=== PATIENT | male | born 1960 | race Caucasian/White ===

== ENCOUNTER → 2019-10-27 09:39 | Outpatient (BNVA) | payer MEDICARE, MEDICAID, SELFPAY | PROVIDERS: Family Provider Family Medicine; PCP Family Medicine; Visit Provider Family Medicine | DX: D64.9 Anemia, unspecified (principal); V89.2XXA Person injured in unspecified motor-vehicle accident, traffic, initial encounter; I10 Essential (primary) hypertension; M62.838 Other muscle spasm; D50.8 Other iron deficiency anemias; N52.9 Male erectile dysfunction, unspecified; K21.9 Gastro-esophageal reflux disease without esophagitis; M51.36 Other intervertebral disc degeneration, lumbar region | CPT/HCPCS: 80053; 85025 ==

== ENCOUNTER → 2020-01-25 17:00 | Outpatient (BNVA) | payer MEDICARE, MEDICAID, SELFPAY | PROVIDERS: Family Provider Family Medicine; PCP Family Medicine; Visit Provider Nurse Practitioner | DX: S92.414A Nondisplaced fracture of proximal phalanx of right great toe, initial encounter for closed fracture (principal); X58.XXXA Exposure to other specified factors, initial encounter | CPT/HCPCS: 73610; 73630 ==

== ENCOUNTER 2020-04-10 13:09 | Emergency (ER) | payer MEDICARE, MEDICAID, SELFPAY ==
[2020-04-10 13:40] VITALS: BP 115/73; PULSE 106; RESP 14; TEMP 36.8; O2SAT 96; BMI 26.6
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
== END 2020-04-10 14:41 | disposition home or self-care (01) ==
PROVIDERS: Emergency Provider Nurse Practitioner Family; PCP Family Medicine
DX: S61.213A Laceration without foreign body of left middle finger without damage to nail, initial encounter (principal); W20.8XXA Other cause of strike by thrown, projected or falling object, initial encounter; I10 Essential (primary) hypertension; F17.210 Nicotine dependence, cigarettes, uncomplicated
CPT/HCPCS: 12002; 12345; 99281

== ENCOUNTER → 2020-09-11 11:19 | Outpatient (BNVA) | payer MEDICARE, MEDICAID, SELFPAY | PROVIDERS: PCP Family Medicine; Visit Provider Family Medicine | DX: Z00.00 Encounter for general adult medical examination without abnormal findings (principal); I10 Essential (primary) hypertension; M10.9 Gout, unspecified; F19.982 Other psychoactive substance use, unspecified with psychoactive substance-induced sleep disorder; M51.36 Other intervertebral disc degeneration, lumbar region | CPT/HCPCS: 80053; 84550 ==

== ENCOUNTER → 2020-11-28 10:36 | Outpatient (BNVA) | payer MEDICARE, MEDICAID, SELFPAY | PROVIDERS: PCP Family Medicine; Visit Provider Nurse Practitioner | DX: S99.911A Unspecified injury of right ankle, initial encounter (principal); S99.921A Unspecified injury of right foot, initial encounter; M12.871 Other specific arthropathies, not elsewhere classified, right ankle and foot | CPT/HCPCS: 73090; 73610; 73630 ==

== ENCOUNTER 2020-11-29 14:29 | Emergency (ER) | payer MEDICARE, MEDICAID, SELFPAY ==
[2020-11-29 14:38] VITALS: PULSE 112; RESP 20; TEMP 37.2; O2SAT 96; BMI 27.3
--- NOTE | 2020-11-29 15:06 | XR_ITS ---
WS: [id number] LEFT ELBOW: 3 VIEW(S) TECHNIQUE: AP, oblique and lateral. HISTORY: questionable radial head fx on forearm film from yesterday COMPARISON: None available. No acute fractures or dislocation. No joint effusion. No soft tissue abnormality. XR/XR elbow LT min 3V* [id number] IMPRESSION: Normal LEFT elbow.
--- NOTE | 2020-11-29 15:06 | XR_ITS ---
WS: [id number] RIGHT ANKLE: 3 VIEW(S) TECHNIQUE: AP, oblique(s) and lateral. HISTORY: Possible tibial fracture. COMPARISON: Study on 11/28/2020. Again noted is the lucency through the distal lateral tibia seen only on one projection. Suspicious f or an incomplete fracture. Complete fusion across the tibiotalar and the distal tibiofibular joint spaces. Mild deformity in the mid fibula probably from a prior fracture. XR/XR ankle RT min 3V* [id number] IMPRESSION: 1. Again noted is a lucency seen only on one projection involving the distal t ibia. Highly suspicious for an incomplete fracture. Age indeterminate. 2. 

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
[2020-11-29] MEDS: tetanus-diphtheria tox (adult) 0.5 mL SDV IM (15:47)
--- NOTE | 2020-11-30 11:29 | DCPLANNER ---
international trade manager had message to schedule a follow up appointment for patient with ortho. international trade manager called the ortho clinic, spoke with Suzie, gave clinic patients information. international trade manager was told that patients information would be printed and reviewed. Clinic will call patient with appointment information.
--- NOTE | 2020-12-01 11:18 | DCPLANNER ---
Patient has a follow up appointment scheduled for Friday, December 01, 2020 at 3:[address] Elder at [facility]. Clinic will call patient with appointment information.
--- NOTE | 2020-12-07 08:05 | DCPLANNER ---
Patient had a follow up appointment scheduled for 12.01.[address] Elder at [facility] - patient did attend appointment.
== END 2020-11-29 17:03 | disposition home or self-care (01) ==
PROVIDERS: Emergency Provider Physician Assistant; PCP Family Medicine
DX: S31.821A Laceration without foreign body of left buttock, initial encounter (principal); S82.301A Unspecified fracture of lower end of right tibia, initial encounter for closed fracture; W01.198A Fall on same level from slipping, tripping and stumbling with subsequent striking against other object, initial encounter; Y93.01 Activity, walking, marching and hiking; W26.0XXA Contact with knife, initial encounter; I10 Essential (primary) hypertension; F17.210 Nicotine dependence, cigarettes, uncomplicated; Z23 Encounter for immunization
CPT/HCPCS: 29515; 73080; 73610; 90471; 90714; 99283; E0114

== ENCOUNTER → 2021-01-09 10:08 | Outpatient (BNVA) | payer MEDICARE, MEDICAID, SELFPAY | PROVIDERS: PCP Family Medicine; Visit Provider Nurse Practitioner Family | DX: Z20.822 Contact with and (suspected) exposure to COVID-19 (principal); Z01.812 Encounter for preprocedural laboratory examination | CPT/HCPCS: 87426 ==

== ENCOUNTER → 2022-04-01 10:09 | Outpatient (BNVA) | payer MEDICARE, MEDICAID, SELFPAY | PROVIDERS: PCP Family Medicine; Visit Provider Family Medicine | DX: I10 Essential (primary) hypertension (principal); D64.9 Anemia, unspecified; J44.1 Chronic obstructive pulmonary disease with (acute) exacerbation | CPT/HCPCS: 80053; 85025 ==

== ENCOUNTER → 2022-05-14 11:01 | Outpatient (BNVA) | payer MEDICARE, MEDICAID, SELFPAY | PROVIDERS: PCP Family Medicine; Visit Provider Nurse Practitioner | DX: R39.9 Unspecified symptoms and signs involving the genitourinary system (principal); M54.32 Sciatica, left side | CPT/HCPCS: 81000; 87086 ==

== ENCOUNTER 2022-06-17 11:10 | Outpatient (CLI) | payer MEDICARE, MEDICAID, SELFPAY ==
--- NOTE | 2022-06-17 11:00 | MR_ITS ---
WS: [id number] MRI LUMBAR SPINE NONCONTRAST TECHNIQUE: Sagittal T1, T2 and STIR imaging. Axial T1 and T2 imaging. CLINICAL INFORMATION: progressive accelerating left back/leg pain recent weeks COMPARISON: MRI 2011 FINDINGS: Mild lumbar curve. No acute compression. Mild disc bulging L3-L4 and L4-L5. Mild chronic compression superior endplate L1 is new from previous but has a chronic appearance. L1-L2: Mild facet arthropathy. Spinal canal and foramen are patent. L2-L3: Mild annular bulging. Mild facet arthropathy. Spinal canal and foramen are patent. L3-L4: Mild annular bulging. Moderate central canal stenosis. Impingement traversing L4 nerve roots b ilaterally. Mild LEFT and no significant RIGHT foraminal narrowing. Moderate facet arthropathy. L4-L5: Mild annular bulging. Impingement on the RIGHT subarticular recess and traversing RIGHT L5 ner ve root. Moderate facet arthropathy. Foramen are patent. L5-S1: No significant disc bulging. Moderate facet arthropathy. Spinal canal and foramen are patent. Visualized pelvic bony structures: Normal. Paravertebral soft tissues: Normal. MR/MR lumbar spine wo con* [id number] IMPRESSION: 1. Mild lumbar curve. No acute compression 2. Moderate central canal stenosis L3-L4 due to mild annular bulging with impi ngement traversing L4 nerve roots bilaterally. 3. Annular bulging L4-L5 impinges the RIGHT subarticular recess and traversing RIGHT L5 nerve root. 4. Eccentric disc bulging L3-L4 with small foraminal protrusions results in mi ld LEFT greater than RIGHT foraminal narrowing with contact of the exiting L3 n erve roots bilaterally.
== END 2022-06-17 11:11 | disposition home or self-care (01) ==
LOC: RAD 11:13
PROVIDERS: PCP Family Medicine; Visit Provider Family Medicine
DX: M48.061 Spinal stenosis, lumbar region without neurogenic claudication (principal); M51.16 Intervertebral disc disorders with radiculopathy, lumbar region
CPT/HCPCS: 72148

== ENCOUNTER → 2022-06-27 11:38 | Outpatient (BNVA) | payer MEDICARE, MEDICAID, SELFPAY | PROVIDERS: PCP Family Medicine; Referring Provider Family Medicine; Visit Provider Physician Assistant | DX: M51.16 Intervertebral disc disorders with radiculopathy, lumbar region (principal) | CPT/HCPCS: 72110; 99203 ==

== ENCOUNTER 2022-07-13 19:32 | Emergency (ER) | payer MEDICARE, MEDICAID, SELFPAY ==
[2022-07-13 19:34] VITALS: BP 127/75; PULSE 109; RESP 15; TEMP 37.2; O2SAT 97
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
[2022-07-13 20:06] VITALS: RESP 18
[2022-07-13] MEDS: morphine 4 mg/mL SDV 1 mL IM (20:06)
[2022-07-13] MEDS: dexamethasone 10 mg/mL INJ IM (20:06)
[2022-07-13] MEDS: ketorolac 30 mg/mL INJ IM (20:07)
== END 2022-07-13 20:16 | disposition home or self-care (01) ==
PROVIDERS: Emergency Provider Nurse Practitioner Family; PCP Family Medicine
DX: M54.50 Low back pain, unspecified (principal); M10.9 Gout, unspecified; M54.2 Cervicalgia; J44.1 Chronic obstructive pulmonary disease with (acute) exacerbation; I10 Essential (primary) hypertension; F17.210 Nicotine dependence, cigarettes, uncomplicated
CPT/HCPCS: 96372; 99284; J1100; J1885; J2270

== ENCOUNTER → 2022-07-18 09:18 | Outpatient (BNVA) | payer MEDICARE, MEDICAID, SELFPAY | PROVIDERS: PCP Family Medicine; Referring Provider Physician Assistant; Visit Provider Anesthesiology Pain Medicine | DX: G89.29 Other chronic pain (principal); M51.16 Intervertebral disc disorders with radiculopathy, lumbar region; M48.061 Spinal stenosis, lumbar region without neurogenic claudication; M51.36 Other intervertebral disc degeneration, lumbar region; M47.816 Spondylosis without myelopathy or radiculopathy, lumbar region | CPT/HCPCS: 99205 ==

== ENCOUNTER → 2022-10-08 10:56 | Outpatient (BNVA) | payer MEDICARE, MEDICAID, SELFPAY | PROVIDERS: PCP Family Medicine; Visit Provider Physician Assistant | DX: M54.9 Dorsalgia, unspecified (principal) | CPT/HCPCS: 99213 ==

== ENCOUNTER → 2022-10-29 13:03 | Outpatient (BNVA) | payer MEDICARE, MEDICAID, SELFPAY | PROVIDERS: PCP Family Medicine; Visit Provider Anesthesiology Pain Medicine | DX: M47.816 Spondylosis without myelopathy or radiculopathy, lumbar region (principal); M51.16 Intervertebral disc disorders with radiculopathy, lumbar region; M48.061 Spinal stenosis, lumbar region without neurogenic claudication; M51.36 Other intervertebral disc degeneration, lumbar region; G89.29 Other chronic pain | CPT/HCPCS: 64493; 64494; 64495; J3490 ==

== ENCOUNTER 2022-12-23 06:27 | Emergency (ER) | payer MEDICARE, MEDICAID, SELFPAY ==
[2022-12-23 06:44] VITALS: BP 138/92; PULSE 107; RESP 18; TEMP 36.8; O2SAT 98; BMI 25.7
[2022-12-23] MEDS: dexamethasone 10 mg/mL INJ IM (06:53)
[2022-12-23] MEDS: orphenadrine 30 mg/mL Inj 2 mL 60 MG IVP (06:53)
[2022-12-23] MEDS: ketorolac 30 mg/mL INJ IVP (06:53)
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
[2022-12-23 07:38] VITALS: RESP 17
[2022-12-23] MEDS: morphine 4 mg/mL SDV 1 mL IM (07:38)
== END 2022-12-23 08:18 | disposition home or self-care (01) ==
PROVIDERS: Emergency Provider Family Medicine; PCP Family Medicine
DX: M54.16 Radiculopathy, lumbar region (principal); I10 Essential (primary) hypertension; F17.210 Nicotine dependence, cigarettes, uncomplicated
CPT/HCPCS: 96372; 96374; 96375; 99284; J1100; J1885; J2270; J2360

== ENCOUNTER → 2023-02-13 15:58 | Outpatient (BNVA) | payer MEDICARE, MEDICAID, SELFPAY | PROVIDERS: PCP Family Medicine; Visit Provider Orthopaedic Surgery | DX: M51.16 Intervertebral disc disorders with radiculopathy, lumbar region (principal); M47.816 Spondylosis without myelopathy or radiculopathy, lumbar region | CPT/HCPCS: 72110; 99214 ==

== ENCOUNTER → 2023-03-05 10:46 | Outpatient (BNVA) | payer MEDICARE, MEDICAID, SELFPAY | PROVIDERS: PCP Family Medicine; Visit Provider Family Medicine | DX: Z01.818 Encounter for other preprocedural examination (principal) | CPT/HCPCS: 80053; 81000; 85025 ==

== ENCOUNTER 2023-03-12 05:49 | Day surgery (SDC) | payer MEDICARE, MEDICAID, SELFPAY ==
[2023-03-12] VITALS (13 sets, daily range): BP systolic 109–165; BP diastolic 87–105; PULSE 82–98; RESP 16–21; TEMP 36.3–36.8; O2SAT 93–99; BMI 29.2
--- NOTE | 2023-03-12 | XR_ITS ---
WS: [id number] INTRAOPERATIVE TECHNIQUE: 5 Spot fluoroscopic images for intraoperative purposes. FLUOROSCOPY TIME: 16.9 seconds CLINICAL INFORMATION: L3-4; L4-5 decompression, or pic COMPARISON: None. FINDINGS: Localization marker projected over the dorsal LEFT L4-5 and LEFT L3-4 disc spaces. IMPRESSION: Images obtained for intraoperative purposes.
[2023-03-12] MEDS: sodium chloride 0.9% 1,000 ML 30 ML IV (06:20)
--- NOTE | 2023-03-12 06:24 | W.PM.OPSUD ---
Surgery/Procedure H&P Update DATE OF PROCEDURE: March 12, 2023 DATE H&P PERFORMED: 03/05/23 H&P UPDATE INFORMATION: I have reviewed H&P completed within last 30 days, I have examined patient prior to procedure and No changes to prior documentation PREOP DIAGNOSIS: Lumbar Stenosis PLANNED PROCEDURE: Operation Date: 03/12/23 07:00 Proposed Procedures p Lumbar Spine Decompression Lumbar Decompression/ Bilateral Standing on left side(Bilateral) - Mike Penny DO
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
[2023-03-12] MEDS: ceFAZolin 2,000 MG in sodium chloride 0.9% (plus) 50 ML 100 MG IV (07:04)
[2023-03-12] MEDS: lidocaine-epi 2% 20 mL INJ INJECTION (07:26)
[2023-03-12] MEDS: thrombin 5,000 unit SDV 5000 UNIT XX (07:41)
--- NOTE | 2023-03-12 08:15 | P.OP_ITS ---
Operative Report Date of procedure: March 12, 2023 Pre-op diagnosis: Lumbar stenosis with neurogenic claudication Post-op diagnosis: same Procedure done: 1. L3-4 laminectomy with partial facetectomies 2. L4-5 laminectomy with partial facetectomies Surgeon: Mike Penny DO Immunology Specialist: Jelani Ramos Immunology Specialist: The surgical services coordinator, Jelani Ramos, DILCIA was needed for his expertise under the microscope. He was important and necessary throughout the procedure to complete in a safe and timely manner. He assisted with patient positioning prepping and draping tissue retraction suctioning of the operative field protection of the dural sac and tissue closure Estimated blood loss (mL): 10 Procedure: 1. L3-4 laminectomy with partial facetectomies 2. L4-5 laminectomy with partial facetectomies Patient is brought to the operative suite. After undergoing anesthesia they are placed in the prone position. All areas of impingement are well padded. Patient is then prepped and draped in the normal sterile fashion. A skin incision is made over the L3/4 level. This is confirmed under c-arm guidance. A series of dilators are passed and the tubular retractor is docked on the L3 lamina. A bovie is used to clear the soft tissue off the lamina and the L 3/4 facet joint. A high speed killian is then used to perform the laminectomy and take down the medial aspect of the L 3/4 facet joint. A kerrison rongeure was then used to take down the remaining lamina and smooth the edged of the laminectomy up to the point where the ligamentum flavum attaches. Attention was then brought to the medial aspect of the facet joint. The remaining medial aspect of the superior and inferior aspect of the facet joint were taken down with the kerrison from the pedicle of L3 to L 4. The facet joint had significant hypertrophy. Attention was then brought to the Ligamentum Flavum. The ligament was taken down from the lamina of L3 to L4 and out medially to the remaining facet joint. The ligament was thick. The dura was then exposed. The dura was in good repair. The L3 nerve was then traced with a curette out the L3/4 foramen and found to be adequately decompressed. The L4 nerve was traced with a curette around the L4 pedicle. The lateral recess was opened with a kerrison helping to further decompress the L4 nerve. The tubular retractor was then tilted to the contralateral side. The bovie was used to take down the soft tissue on the spinous process. The high speed killian was used to take down the spinous process and then the contralateral lamina of L3. The kerrison rongeur was used to take down the remaining lamina to the point where the ligamentum flavum attached and the ligamentum flavum was taken down from L3 to L4. The kerrison rongeur was then used to reach across and take down the medial aspect of the contralateral L3/4 facet joint.The currete was used to trace the contralateral L3 nerve out the L3/4 foramen to make sure it was decompressed adequatesly and the L4 was traced around the L4 pedicle. The lateral recess was opened further with the kerrison to ensure the L4 is adequately decompressed. Wound is then irrigated copiously with saline and surgiflo is used to stop any bleeding. The tubular retractor is removed and the A skin incision is made over the L4/5 level. This is confirmed under c-arm guidance. A series of dilators are passed and the tubular retractor is docked on the L4 lamina. A bovie is used to clear the soft tissue off the lamina and the L 4/5 facet joint. A high speed killian is then used to perform the laminectomy and take down the medial aspect of the L 4/5 facet joint. A kerrison rongeure was then used to take down the remaining lamina and smooth the edged of the laminectomy up to the point where the ligamentum flavum attaches. Attention was then brought to the medial aspect of the facet joint. The remaining medial aspect of the superior and inferior aspect of the facet joint were taken down with the kerrison from the pedicle of L4 to L 5. The facet joint had significant hypertrophy. Attention was then brought to the Ligamentum Flavum. The ligament was taken down from the lamina of L4 to L5 and out medially to the remaining facet joint. The ligament was thick. The dura was then exposed. The dura was in good repair. The L4 nerve was then traced with a curette out the L4/5 foramen and found to be adequately decompressed. The L5 nerve was traced with a curette around the L5 pedicle. The lateral recess was opened with a kerrison helping to further decompress the L5 nerve. The tubular retractor was then tilted to the contralateral side. The bovie was used to take down the soft tissue on the spinous process. The high speed killian was used to take down the spinous process and then the contralateral lamina of L4. The kerrison rongeur was used to take down the remaining lamina to the point where the ligamentum flavum attached and the ligamentum flavum was taken down from L4 to L5. The kerrison rongeur was then used to reach across and take down the medial aspect of the contralateral L4/5 facet joint.The currete was used to trace the contralateral L4 nerve out the L4/5 foramen to make sure it was decompressed adequatesly and the L5 was traced around the L5 pedicle. The lateral recess was opened further with the kerrison to ensure the L5 is adequately decompressed. Wound is then irrigated copiously with saline and surgiflo is used to stop any bleeding. The tubular retractor is removed and the wound is closed with vicryl and monocryl suture. Glue is then used to protect the wound. A sterile dressing is then placed. Patient was then placed in the supine position and transferred to the PACU in stable condition.
[2023-03-12] MEDS: HYDROcodone-acetaminophen 10-325 mg Tablet 1 TAB PO (09:17)
--- NOTE | 2023-03-12 09:35 | ANE.PACU2 ---
Inpatient post-anesthesia follow up: Airway intact: Yes Vital signs: Temperature 98.0 F Pulse Rate 82 Respiratory Rate 17 Blood Pressure 109/88 Pulse Oximetry 94 Oxygen Delivery Me thod Room Air Oxygen Flow Rate 6 Fraction of Inspir ed Oxygen Hydration adequate: Yes Nausea and vomiting: No Pain level: 1 Mental status: Baseline
== END 2023-03-12 09:36 | disposition home or self-care (01) ==
PROVIDERS: PCP Family Medicine; Visit Provider Orthopaedic Surgery
PROC: (CPT 63005; principal; 2023-03-12 07:00)
DX: M48.062 Spinal stenosis, lumbar region with neurogenic claudication (principal); J44.9 Chronic obstructive pulmonary disease, unspecified; I10 Essential (primary) hypertension; K21.9 Gastro-esophageal reflux disease without esophagitis; F17.210 Nicotine dependence, cigarettes, uncomplicated
CPT/HCPCS: 63047; 63048; 72020; 76000; J0690; J1100; J2405; J2704; J3010; J3490; J7030

== ENCOUNTER → 2023-04-10 09:59 | Outpatient (BNVA) | payer MEDICARE, SELFPAY | PROVIDERS: PCP Family Medicine; Visit Provider Orthopaedic Surgery | DX: Z47.89 Encounter for other orthopedic aftercare (principal) | CPT/HCPCS: 99024 ==

== ENCOUNTER → 2023-05-22 10:17 | Outpatient (BNVA) | payer MEDICARE, SELFPAY | PROVIDERS: PCP Family Medicine; Visit Provider Orthopaedic Surgery | DX: Z98.890 Other specified postprocedural states (principal) | CPT/HCPCS: 99024 ==

== ENCOUNTER → 2023-07-01 10:30 | Outpatient (BNVA) | payer MEDICARE, SELFPAY | PROVIDERS: PCP Family Medicine; Visit Provider Orthopaedic Surgery | DX: M54.2 Cervicalgia (principal); Z98.890 Other specified postprocedural states | CPT/HCPCS: 72050; 99024 ==

== ENCOUNTER 2023-08-01 15:38 | Emergency (ER) | payer MEDICARE, SELFPAY ==
[2023-08-01 15:41] VITALS: BP 161/73; PULSE 102; RESP 16; TEMP 36.8; O2SAT 99; BMI 28.3
--- NOTE | 2023-08-01 16:48 | XRR_ITS ---
PROCEDURE INFORMATION: Exam: XR Chest Exam date and time: 08/01/2023 4:51 PM Age: 63 years old Clinical indication: Cough TECHNIQUE: Imaging protocol: Radiologic exam of the chest. Views: 1 view. COMPARISON: CR XR chest 1V [id number] 09/09/2018 11:51 AM FINDINGS: Lungs: Unremarkable. No consolidation. Pleural spaces: Unremarkable. No pleural effusion. No pneumothorax. Heart/Mediastinum: Unremarkable. No cardiomegaly. Bones/joints: Mild degenerative disease of bilateral acromioclavicular and glenohumeral joints. Mild curvature of the thoracolumbar spine convex to the right. XR/XR chest 1V portable [id number] IMPRESSION: No acute cardiopulmonary process.
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
--- NOTE | 2023-08-01 16:59 | ECG_ITS ---
[facility] Test Date: 2023-08-01 Pat Name: Tam Ospina Department: Room: Gender: Male Clerical Aide: : 1960 Requested By: Dariusz Camara Order Number: [id number] Alvarenga MD: Sunday Storm M.D. Measurements Intervals [place] Rate: 99 P: 66 [place]: 142 QRS: 41 QRSD: 130 T: 35 QT: 382 QTc: 491 Interpretive Statements SINUS RHYTHM WITH SINUS ARRHYTHMIA INDETERMINATE AXIS RIGHT BUNDLE BRANCH BLOCK [120+ ms QRS DURATION, UPRIGHT V1, 40+ ms S IN I/aVL/V4/V5/V6] Compared to ECG 09/10/2018 00:46:56 Indeterminate axis now present Electronically Signed On 08-04-2023 12:58:07 CDT by Sunday Storm M.D. [email or web address]
[2023-08-01] MEDS: sodium chloride 0.9% 1,000 ML 999 ML IV (17:41)
[2023-08-01] MEDS: ondansetron 2 mg/ML SDV 2 mL 4 MG IVP ×2 (17:43→19:50)
[2023-08-01 17:48] VITALS: BP 143/117; PULSE 98; O2SAT 98
[2023-08-01 17:55] LABS: Basophils % 0.2 %; Hematocrit 45.5 % (37-53); Lymphocytes # 1.4 10^3/uL (0.8-4.8); Lymphocytes % 11.3 %; Mean Corpuscular HGB Conc 34.1 g/dL (30-55); Mean Corpuscular Hemoglobin 30.4 pg (27-33); Mean Corpuscular Volume 89.2 fl (82-101); Mean Platelet Volume 10.6 fL (7.4-10.4); Monocytes # 0.2 10^3/uL (0.2-0.9); Monocytes % 1.8 %; Neutrophils # 10.42 10^3/uL (1.8-7.7); Neutrophils % 86.1 %; Nucleated Red Blood Cells % 0 %; Platelet Count 334 10^3/cmm (157-399); Red Cell Distribution Width 13.8 % (12.1-15.1)
[2023-08-01 18:00] VITALS: BP 176/103; PULSE 98; O2SAT 100
[2023-08-01 18:16] LABS: Alanine Aminotransferase 16 U/L (0-41); Albumin Level 4.9 g/dL (3.5-5.2); Alkaline Phosphatase 97 U/L (40-130); Anion Gap 20.1 (5-19); Aspartate Amino Transferase 15 U/L (0-40); Blood Urea Nitrogen 21 mg/dL (8-23); Calcium 9.3 mg/dL (8.5-10.5); Carbon Dioxide 21 mmol/L (22-29); Chloride 105 mmol/L (98-107); Globulin 2.8 g/dL (1.3-4.6); Glomerular Filtration Rate 136.5 mL/min (90-130); Glucose 138 mg/dL (65-115); Lipase 16 U/L (13-60); Osmolality Calculated 299 mOsm/kg (285-295); Potassium 4.1 mmol/L (3.5-5.1); Sodium 142 mmol/L (136-145); Total Bilirubin 0.5 mg/dL (0.15-1.2); Total Protein 7.7 g/dL (6.6-8.7)
[2023-08-01] MEDS: ketorolac 60 mg/2 mL INJ 30 MG IVP (18:29)
[2023-08-01 18:31] VITALS: BP 160/87; PULSE 97; O2SAT 98
--- NOTE | 2023-08-01 18:36 | CTR_ITS ---
PROCEDURE INFORMATION: Exam: CT Abdomen And Pelvis With Contrast Exam date and time: 08/01/2023 6:46 PM Age: 63 years old Clinical indication: Nausea and vomiting; Abdominal pain; Patient HX: Periumbilical pain with n/v/d x 2 days; Additional info: Abd pain TECHNIQUE: Imaging protocol: Computed tomography of the abdomen and pelvis with contrast. Radiation optimization: All CT scans at this facility use at least one of these dose optimization techniques: automated exposure control; mA and/or kV adjustment per patient size (includes targeted exams where dose is matched to clinical indication); or iterative reconstruction. Contrast material: OMNI 350; Contrast volume: 100 ml; Contrast route: INTRAVENOUS (IV); COMPARISON: CT abdomen pelvis wo con [id number] 09/09/2018 7:25 PM RADIATION DOSE METRICS: Total DLP (mGy-cm): 532.76 FINDINGS: Liver: Normal. No mass. Gallbladder and bile ducts: Normal. No calcified stones. No ductal dilation. Pancreas: Normal. No ductal dilation. Spleen: Multiple punctate calcifications in the spleen consistent with prior granulomatous infection. Adrenal glands: Normal. No mass. Kidneys and ureters: Normal. No hydronephrosis. Stomach and bowel: Unremarkable. No obstruction. No mucosal thickening. Appendix: No evidence of appendicitis. Intraperitoneal space: Unremarkable. No free air. No significant fluid collection. Vasculature: Unremarkable. No abdominal aortic aneurysm. Lymph nodes: Unremarkable. No enlarged lymph nodes. Urinary bladder: Unremarkable as visualized. Reproductive: Unremarkable as visualized. Bones/joints: Unremarkable. No acute fracture. Soft tissues: Unremarkable. CT/CT abdomen pelvis w con* [id number] IMPRESSION: 1. No bowel obstruction or inflammatory process associated with the bowel. 2. No free air or significant free fluid in the abdomen or pelvis. 3. No evidence of appendicitis.
[2023-08-01 18:38] LABS: Add Urine Microscopic? YES; Bacteria Urine TRACE /hpf; Bilirubin Urine Neg (Negative); Blood Urine 2+ (Negative); Glucose Urine UA Norm (Normal); Ketones Urine 2+ (Negative); Leukocyte Esterase Urine Negative (Negative); Nitrate Urine Negative (Negative); Protein Urine Trace (Negative); RBC Urine 0-4 /hpf (0-2); Specific Gravity, Urine 1.015 (1.005-1.030); Squamous Epithelial Cell Urine 0-4 /hpf (0-5); Urine Appearance Clear (CLEAR); Urine Color Yellow (Yellow); Urobilinogen Urine Neg (Negative); WBC Urine 0-4 /hpf (0-5); pH Urine 6 (5-7)
[2023-08-01] MEDS: iohexol 350 mg/mL 500 mL Btl (per mL) IV (18:46)
[2023-08-01] MEDS: metoclopramide 5 mg/mL SDV 2 mL 10 MG IVP (18:57)
[2023-08-01] MEDS: azithromycin 250 mg Tablet 500 MG PO (19:50)
[2023-08-01] MEDS: predniSONE 20 mg Tablet 60 MG PO (19:50)
[2023-08-01 19:52] VITALS: BP 171/95; PULSE 110; RESP 15; O2SAT 97
[2023-08-01 20:02] LABS: Adenovirus Not Detected (NOT DETECT); Chlamydia Pneumoniae Not Detected (NOT DETECT); Coronavirus 229E,HKU1,NL63,OC4 Not Detected (NOT DETECT); Human Metapneumovirus Not Detected (NOT DETECT); Human Rhinovirus/Enterovirus Not Detected (NOT DETECT); Influenza A Not Detected (NOT DETECT); Influenza A H1 Not Detected (NOT DETECT); Influenza A H1-2009 Not Detected (NOT DETECT); Influenza A H3 Not Detected (NOT DETECT); Influenza B Not Detected (NOT DETECT); Mycoplasma Pneumoniae Not Detected (NOT DETECT); Parainfluenza Virus Type 1 Not Detected (NOT DETECT); Parainfluenza Virus Type 2 Not Detected (NOT DETECT); Parainfluenza Virus Type 3 Not Detected (NOT DETECT); Parainfluenza Virus Type 4 Not Detected (NOT DETECT); Respiratory Syncytial Virus A Not Detected (NOT DETECT); Respiratory Syncytial Virus B Not Detected (NOT DETECT); SARS-COV-2 Not Detected (NOT DETECT)
== END 2023-08-01 20:03 | disposition home or self-care (01) ==
PROVIDERS: Emergency Provider Physician Assistant; PCP Family Medicine
DX: K52.9 Noninfective gastroenteritis and colitis, unspecified (principal); J40 Bronchitis, not specified as acute or chronic; F17.200 Nicotine dependence, unspecified, uncomplicated
CPT/HCPCS: 71045; 74177; 80053; 81001; 83690; 85025; 87486; 87581; 87633; 93005; 96374; 96375; 96376; 99285; J1885; J2405; J2765; J7030; J7512; Q0144; Q9967

== ENCOUNTER 2023-08-14 10:48 | Outpatient (CLI) | payer MEDICARE, SELFPAY ==
--- NOTE | 2023-08-14 11:00 | MR_ITS ---
WS: [id number] MRI CERVICAL SPINE NONCONTRAST HISTORY: neck pain COMPARISON: None available. Technique: Multiplanar, multisequence noncontrast imaging of the cervical spine. Slight increase in the cervical lordosis. 2 mm retrolisthesis of C4. Disc spaces are mildly narrowed and desiccated throughout the cervical spine. There is a small amount of increased T2 signal in the v isualized T3 vertebral body with moderate disc space narrowing at T3-4. There is a small central disc protrusion at T3-4 encroaching upon the ventral thecal sac. Signal within the cervical cord is normal. Visualized posterior fossa is unremarkable. Craniocervical junction, C1 and C2 relationship, odontoid process and soft tissues are normal. C2-C3: Normal. C3-C4: Small central disc protrusion. Mild facet arthritis. Small amount of marrow edema LEFT C3 can cular facet. There is also a small amount of adjacent fluid in the LEFT C2-3 facet joint. Moderate bi lateral foraminal stenosis. C4-C5: Mild annular disc bulging with bilateral facet arthritis, LEFT greater than RIGHT. Moderate-si zed foraminal osteophytes. Severe RIGHT and moderate LEFT foraminal stenosis. C5-C6: Osteophytic ridging and facet disease. Effacement of CSF. Severe central and bilateral foraminal stenosis. C6-C7: Small central disc protrusion and facet arthritis. Mild central and foraminal stenosis. C7-T1: Normal. Paraspinal soft tissue are normal. MR/MR cervical spin wo con* [id number] IMPRESSION: 1. Moderate cervical spondylosis. 2. C5-6: Severe central and bilateral foraminal stenosis. Stenosis due to comb ination of disc and osteophyte and facet disease. 3. C3-4: Small central disc protrusion with facet arthritis. Marrow edema in t he LEFT C3 articular facet and in the LEFT C2-3 facet joint from synovitis. Mod erate bilateral foraminal stenosis predominantly due to osteophyte and facet di sease. 4. C4-5: Severe RIGHT and moderate LEFT foraminal stenosis. 5. C6-7: Mild central and foraminal stenosis with a small central disc protrus ion. 6. Degenerative disc disease is moderate at T3-4 with a central disc protrusio n encroaching upon the ventral thoracic cord.
== END 2023-08-14 10:49 | disposition home or self-care (01) ==
LOC: RAD 10:48
PROVIDERS: PCP Family Medicine; Visit Provider Orthopaedic Surgery
DX: M54.2 Cervicalgia (principal); M48.02 Spinal stenosis, cervical region
CPT/HCPCS: 72141

== ENCOUNTER 2023-08-19 11:57 | Emergency (ER) | payer MEDICARE, SELFPAY ==
[2023-08-19 12:00] VITALS: BP 128/67; PULSE 110; RESP 18; TEMP 36.4; O2SAT 95; BMI 28.3
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
[2023-08-19 13:23] VITALS: BP 127/76; PULSE 110; RESP 22; O2SAT 94
[2023-08-19 14:02] VITALS: RESP 24
[2023-08-19] MEDS: ondansetron 2 mg/ML SDV 2 mL 4 MG IVP (14:02)
[2023-08-19] MEDS: morphine 4 mg/mL SDV 1 mL IVP (14:02)
[2023-08-19 14:07] LABS: Basophils # 0.1 10^3/uL (0.0-0.1); Basophils % 0.8 %; Eosinophils # 0.2 10^3/uL (0.0-0.8); Eosinophils % 1.3 %; Hematocrit 42.5 % (37-53); Lymphocytes # 2.9 10^3/uL (0.8-4.8); Lymphocytes % 25.1 %; Mean Corpuscular HGB Conc 31.8 g/dL (30-55); Mean Corpuscular Hemoglobin 30.2 pg (27-33); Mean Corpuscular Volume 95.1 fl (82-101); Mean Platelet Volume 11.3 fL (7.4-10.4); Monocytes # 1.1 10^3/uL (0.2-0.9); Monocytes % 9.5 %; Neutrophils # 7.28 10^3/uL (1.8-7.7); Nucleated Red Blood Cells % 0 %; Platelet Count 236 10^3/cmm (157-399); Red Blood Count 4.47 10^6/uL (3.85-5.65); Red Cell Distribution Width 13.8 % (12.1-15.1); White Blood Count 11.55 10^3/uL (3.29-11.43)
[2023-08-19 14:26] LABS: Alanine Aminotransferase 9 U/L (0-41); Albumin Level 4.1 g/dL (3.5-5.2); Alkaline Phosphatase 94 U/L (40-130); Anion Gap 15.1 (5-19); Aspartate Amino Transferase 12 U/L (0-40); Blood Urea Nitrogen 16 mg/dL (8-23); Calcium 8.6 mg/dL (8.5-10.5); Carbon Dioxide 26 mmol/L (22-29); Chloride 105 mmol/L (98-107); Creatinine Clr Calc Pharmacy 104.8425; Glomerular Filtration Rate 114.3 mL/min (90-130); Glucose 112 mg/dL (65-115); Osmolality Calculated 296 mOsm/kg (285-295); Potassium 4.1 mmol/L (3.5-5.1); Sodium 142 mmol/L (136-145); Total Bilirubin 0.3 mg/dL (0.15-1.2); Total Protein 7.1 g/dL (6.6-8.7)
== END 2023-08-19 15:04 | disposition home or self-care (01) ==
PROVIDERS: Emergency Provider Physician Assistant; PCP Family Medicine
DX: S22.42XA Multiple fractures of ribs, left side, initial encounter for closed fracture (principal); S20.312A Abrasion of left front wall of thorax, initial encounter; I10 Essential (primary) hypertension; Z72.0 Tobacco use; W18.39XA Other fall on same level, initial encounter
CPT/HCPCS: 36415; 71250; 74150; 80053; 85025; 96374; 96375; 99285; J2270; J2405

== ENCOUNTER 2023-09-03 12:08 | Outpatient (CLI) | payer MEDICARE, SELFPAY ==
--- NOTE | 2023-09-03 12:12 | XR_ITS ---
WS: [id number] Exam: XR chest 2V* [id number] Date/Time of Exam: 09/03/2023 12:21 PM Reason For Exam: follow up from hospitalization [facility] Comparison 08/01/2023. The lungs are hyperinflated and clear. Normal cardiomediastinal silhouette. No pleural effusions. Tho racolumbar scoliosis. Mild degenerative changes of the T-spine. Remaining bony structures are unremar kable. XR/XR chest 2V* [id number] IMPRESSION: 1. Pulmonary hyperinflation which may indicate COPD. No acute process.
[2023-09-03 12:40] LABS: Basophils # 0.1 10^3/uL (0.0-0.1); Basophils % 0.6 %; Eosinophils # 0.2 10^3/uL (0.0-0.8); Hematocrit 43.3 % (37-53); Lymphocytes # 2.7 10^3/uL (0.8-4.8); Lymphocytes % 24.2 %; Mean Corpuscular HGB Conc 32.6 g/dL (30-55); Mean Corpuscular Hemoglobin 30.8 pg (27-33); Mean Corpuscular Volume 94.5 fl (82-101); Mean Platelet Volume 9.9 fL (7.4-10.4); Monocytes # 0.7 10^3/uL (0.2-0.9); Monocytes % 6.1 %; Neutrophils % 66.7 %; Nucleated Red Blood Cells % 0 %; Platelet Count 480 10^3/cmm (157-399); Red Blood Count 4.58 10^6/uL (3.85-5.65); Red Cell Distribution Width 14.9 % (12.1-15.1)
[2023-09-03 12:58] LABS: Alanine Aminotransferase 28 U/L (0-41); Alkaline Phosphatase 96 U/L (40-130); Aspartate Amino Transferase 14 U/L (0-40); Blood Urea Nitrogen 24 mg/dL (8-23); Calcium 8.6 mg/dL (8.5-10.5); Carbon Dioxide 23 mmol/L (22-29); Chloride 109 mmol/L (98-107); Creatine Phosphokinase 63 U/L (39-308); Globulin 2.6 g/dL (1.3-4.6); Glucose 96 mg/dL (65-115); Osmolality Calculated 302 mOsm/kg (285-295); Sodium 144 mmol/L (136-145); Total Bilirubin 0.3 mg/dL (0.15-1.2); Total Protein 6.6 g/dL (6.6-8.7)
[2023-09-03 13:00] LABS: Anion Gap 16.1 (5-19); Potassium 4.1 mmol/L (3.5-5.1)
== END 2023-09-03 12:09 | disposition home or self-care (01) ==
LOC: RAD 12:10
PROVIDERS: PCP Family Medicine; Visit Provider Family Medicine
DX: J69.0 Pneumonitis due to inhalation of food and vomit (principal); M62.82 Rhabdomyolysis; M41.9 Scoliosis, unspecified; M47.814 Spondylosis without myelopathy or radiculopathy, thoracic region
CPT/HCPCS: 36415; 71046; 80053; 82550; 85025

== ENCOUNTER → 2023-09-11 15:11 | Outpatient (BNVA) | payer MEDICARE, SELFPAY | PROVIDERS: PCP Family Medicine; Visit Provider Orthopaedic Surgery | DX: M50.90 Cervical disc disorder, unspecified, unspecified cervical region | CPT/HCPCS: 99214 ==

== ENCOUNTER → 2024-01-05 08:02 | Outpatient (BNVA) | payer MEDICARE, MEDICAID, SELFPAY | PROVIDERS: PCP Family Medicine; Referring Provider Family Medicine; Visit Provider Psychiatry & Neurology Neurology | DX: R51.9 Headache, unspecified (principal); R20.0 Anesthesia of skin; R55 Syncope and collapse | CPT/HCPCS: 99203 ==

== ENCOUNTER → 2024-04-27 13:09 | Outpatient (BNVA) | payer MEDICARE, MEDICAID, SELFPAY | PROVIDERS: PCP Family Medicine; Referring Provider Psychiatry & Neurology Neurology; Visit Provider Psychiatry & Neurology Neurology | DX: R55 Syncope and collapse (principal) | CPT/HCPCS: 95816 ==

== ENCOUNTER → 2024-06-02 11:39 | Outpatient (BNVA) | payer MEDICARE, MEDICAID, SELFPAY | PROVIDERS: PCP Family Medicine; Visit Provider Internal Medicine Cardiovascular Disease | DX: R07.9 Chest pain, unspecified (principal) | CPT/HCPCS: 93005; 99214 ==

== ENCOUNTER 2024-06-08 12:12 | Outpatient (CLI) | payer MEDICARE, MEDICAID, SELFPAY ==
--- NOTE | 2024-06-08 12:45 | USCV_ITS ---
Tam Ospina Age: 64 Gender: M : 1960 Exam Date: 06/08/2024 13:06 Ordering Phys: Jennifer Jaimes MD ([email or web address]) Technologist: Exam Location: [facility] Indication: chest pain BP: 123 / 79 HR: 81 Rhythm: Sinus Technical Quality: Adequate MEASUREMENTS (Male / Female) Normal Values 2D ECHO LV Diastolic Diameter PLAX 3.5 cm 4.2 - 5.9 / 3.9 - 5.3 cm IVS Diastolic Thickness 1.1 cm 0.6 - 1.0 / 0.6 - 0.9 cm IVS Systolic Thickness 1.5 cm LVPW Diastolic Thickness 1.3 cm 0.6 - 1.0 / 0.6 - 0.9 cm LVPW Systolic Thickness 1.8 cm LVOT Diameter 2.1 cm LV Ejection Fraction 2D Teich 59.3 % LV Ejection Fraction MOD 4C 66.5 % LV Ejection Fraction MOD 2C 61.7 % LV Ejection Fraction 2C AL 62.2 % LA Diameter 3.0 cm RA Systolic Volume 4C AL 27.6 ml RA Systolic Volume 4C MOD 28.1 ml LA Sys Volume AL 25.9 cm cubed LA Sys Volume Index AL 16.2 cm cubed/m squared Aorta at Sinotubular Diameter 3.1 cm IVC Diameter 1.4 cm M-MODE LA Ao Ratio MM 1.1 AV Cusp Separation MM 2.0 cm DOPPLER AV Peak Velocity 125.0 cm/s LVOT Peak Velocity 101.0 cm/s AV Area Cont Eq vti 3.3 cm squared AV Area Cont Eq pk 2.7 cm squared MV Peak Velocity 79.0 cm/s MV Area PHT 3.4 cm squared Mitral E to A Ratio 0.9 TV Peak Velocity 137.0 cm/s TR Peak Velocity 163.0 cm/s TR Peak Gradient 10.6 mmHg TV Peak E Velocity 68.0 cm/s PV Peak Velocity 98.0 cm/s FINDINGS Left Ventricle Normal left ventricular size and systolic function, EF 61%. Mild left ventricular hypertrophy. Grade I/IV diastolic dysfunction (abnormal relaxation filling pattern), normal to mildly elevated filling pressures. Right Ventricle The right ventricle is normal in size and function. Right Atrium The right atrium is normal in size. Left Atrium The left atrium is normal in size. Mitral Valve No gross abnormalities noted Aortic Valve Thickened aortic valve. Tricuspid Valve No gross abnormalities noted Pulmonic Valve No gross abnormalities noted Pericardium Normal pericardium without effusion. Aorta Normal ascending aorta dimension. IVC Normal inferior vena cava. CONCLUSIONS Normal left ventricular size and systolic function, EF 61%. Mild left ventricular hypertrophy. Grade I/IV diastolic dysfunction (abnormal relaxation filling pattern), normal to mildly elevated filling pressures. Thickened aortic valve. There are no intracardiac masses. There is no pericardial effusion. No similar previous studies are available for comparison Dr Jennifer Jaimes MD [facility] (Electronically Signed) Final Date: 15 June 2024 17:02 S
== END 2024-06-08 12:13 | disposition home or self-care (01) ==
LOC: RAD 12:17
PROVIDERS: PCP Family Medicine; Visit Provider Internal Medicine Cardiovascular Disease
DX: R06.09 Other forms of dyspnea (principal); R93.1 Abnormal findings on diagnostic imaging of heart and coronary circulation; I51.7 Cardiomegaly; I35.8 Other nonrheumatic aortic valve disorders
CPT/HCPCS: 93306

== ENCOUNTER 2024-06-15 15:49 | Emergency (ER) | payer MEDICARE, MEDICAID, SELFPAY ==
--- NOTE | 2024-06-15 15:54 | ECG_ITS ---
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
--- NOTE | 2024-06-15 15:54 | XRR_ITS ---
PROCEDURE INFORMATION: Exam: XR Chest Exam date and time: 06/15/2024 3:57 PM Age: 64 years old Clinical indication: Pain; Angina pectoris; Additional info: Cp TECHNIQUE: Imaging protocol: Radiologic exam of the chest. Views: 1 view. COMPARISON: CR XR chest 2V* [id number] 09/03/2023 12:20 PM FINDINGS: Lungs: Faint opacities of the left lung base. Pleural spaces: Unremarkable. No pleural effusion. No pneumothorax. Heart/Mediastinum: Unremarkable. No cardiomegaly. Bones/joints: Unremarkable. XR/XR chest 1V portable [id number] IMPRESSION: Faint left basilar opacities could represent infiltrate in the correct clinical setting.
[2024-06-15 15:59] VITALS: BP 124/71; PULSE 105; RESP 17; TEMP 36.7; O2SAT 98; BMI 27.4
[2024-06-15 17:12] LABS: Basophils # 0.1 10^3/uL (0.0-0.1); Basophils % 0.8 %; Eosinophils # 0.1 10^3/uL (0.0-0.8); Hematocrit 48.5 % (37-53); Lymphocytes % 22.9 %; Mean Corpuscular HGB Conc 32.4 g/dL (30-55); Mean Corpuscular Hemoglobin 30.3 pg (27-33); Mean Corpuscular Volume 93.6 fl (82-101); Monocytes # 0.7 10^3/uL (0.2-0.9); Neutrophils # 5.84 10^3/uL (1.8-7.7); Neutrophils % 67.2 %; Nucleated Red Blood Cells % 0 %; Platelet Count 256 10^3/cmm (157-399); Red Blood Count 5.18 10^6/uL (3.85-5.65); Red Cell Distribution Width 13.2 % (12.1-15.1)
[2024-06-15 17:22] LABS: INR 0.88 (0.8-1.2)
[2024-06-15 17:42] LABS: Troponin(5th) Baseline 7 ng/L (0-15)
[2024-06-15 17:45] LABS: Alanine Aminotransferase 15 U/L (0-41); Albumin Level 4.6 g/dL (3.5-5.2); Alkaline Phosphatase 97 U/L (40-130); Aspartate Amino Transferase 16 U/L (0-40); Blood Urea Nitrogen 17 mg/dL (8-23); Calcium 9.3 mg/dL (8.5-10.5); Carbon Dioxide 22 mmol/L (22-29); Chloride 104 mmol/L (98-107); Creatinine Clr Calc Pharmacy 64.9806; Globulin 2.3 g/dL (1.3-4.6); Glomerular Filtration Rate 67.6 mL/min (90-130); Glucose 84 mg/dL (65-115); Lipase 17 U/L (13-60); Osmolality Calculated 293 mOsm/kg (285-295); Sodium 141 mmol/L (136-145); Total Bilirubin 0.4 mg/dL (0.15-1.2); Total Protein 6.9 g/dL (6.6-8.7)
--- NOTE | 2024-06-15 17:57 | CTR_ITS ---
PROCEDURE INFORMATION: Exam: CTA Chest With Contrast Exam date and time: 06/15/2024 6:50 PM Age: 64 years old Clinical indication: Chest wall pain; Additional info: Cp TECHNIQUE: Imaging protocol: Computed tomographic angiography of the chest with contrast. Exam focused on the arteries. 3D rendering (Not supervised by radiologist): MIP and/or 3D reconstructed images were created by the technologist. Radiation optimization: All CT scans at this facility use at least one of these dose optimization techniques: automated exposure control; mA and/or kV adjustment per patient size (includes targeted exams where dose is matched to clinical indication); or iterative reconstruction. Contrast material: OMNIPAQUE 350; Contrast volume: 100 ml; Contrast route: INTRAVENOUS (IV); COMPARISON: CT chest abd wo [id number] 08/19/2023 1:54 PM RADIATION DOSE METRICS: Total DLP (mGy-cm): 406.4 FINDINGS: Pulmonary arteries: No definitive filling defects involving the pulmonary arteries. Aorta: Calcific plaque involves the thoracic aorta and coronary arteries. The thoracic aorta is free of aneurysm and dissection. Lungs: There is mild diffuse bronchial wall thickening. The lungs are free of consolidation. Pleural spaces: Unremarkable. No pneumothorax. No pleural effusion. Heart: Unremarkable. No cardiomegaly. No pericardial effusion. Lymph nodes: Unremarkable. No enlarged lymph nodes. Diaphragm: Small hiatal hernia. Bones/joints: Mild degenerative changes involve the spine. No acute bony abnormality. Old left-sided rib fractures Soft tissues: Unremarkable. Other findings: Evaluation is compromised by respiratory motion. CT/CT angio chest PE protcl [id number] IMPRESSION: 1. Negative exam for pulmonary embolus and aortic dissection. 2. Findings suggestive of mild bronchitis. 3. Atherosclerosis including coronary artery calcification
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
[2024-06-15] MEDS: aspirin 81 mg Chew Tablet 324 MG PO (18:16)
[2024-06-15 18:18] VITALS: BP 127/85; PULSE 86; O2SAT 96
--- NOTE | 2024-06-15 18:34 | CTR_ITS ---
PROCEDURE INFORMATION: Exam: CT Head Without Contrast Exam date and time: 06/15/2024 6:50 PM Age: 64 years old Clinical indication: Other: Weakness; Prior surgery; Surgery date: 6+ months; Surgery type: Facial recon TECHNIQUE: Imaging protocol: Computed tomography of the head without contrast. Radiation optimization: All CT scans at this facility use at least one of these dose optimization techniques: automated exposure control; mA and/or kV adjustment per patient size (includes targeted exams where dose is matched to clinical indication); or iterative reconstruction. COMPARISON: CT head wo con* [id number] 09/09/2018 1:48 PM RADIATION DOSE METRICS: Total DLP (mGy-cm): 1170.7 FINDINGS: Brain: Similar mild generalized cortical volume loss. No hemorrhage. Periventricular and subcortical white matter hypodensities likely represent chronic small vessel ischemic changes. No mass effect. Intracranial vascular calcifications. Cerebral ventricles: No ventriculomegaly. Paranasal sinuses: Visualized sinuses are unremarkable. No fluid levels. Mastoid air cells: Visualized mastoid air cells are well aerated. Bones: Unremarkable. No acute fracture. Soft tissues: Unremarkable. CT/CT head wo con* [id number] IMPRESSION: No acute intracranial abnormality.
[2024-06-15] MEDS: iohexol 350 mg/mL 500 mL Btl (per mL) IV (18:57)
[2024-06-15 20:16] LABS: Troponin 5 2HR 6.19 ng/L (0-15)
[2024-06-15 20:20] LABS: Troponin 5 2HR Delta -0.81 ABS# (0-10)
[2024-06-15 20:33] VITALS: BP 113/83; PULSE 74; O2SAT 93
[2024-06-15 21:13] VITALS: BP 126/104; PULSE 77; O2SAT 95
== END 2024-06-15 21:15 | disposition home or self-care (01) ==
PROVIDERS: Emergency Provider Emergency Medicine; PCP Family Medicine
DX: R07.9 Chest pain, unspecified (principal); F17.210 Nicotine dependence, cigarettes, uncomplicated; I10 Essential (primary) hypertension
CPT/HCPCS: 36415; 70450; 71045; 71275; 80053; 83690; 84484; 85025; 85610; 93005; 99285; J9999

== ENCOUNTER → 2024-09-02 12:52 | Outpatient (BNVA) | payer MEDICARE, MEDICAID, SELFPAY | PROVIDERS: PCP Family Medicine; Visit Provider Nurse Practitioner Family | DX: Z01.818 Encounter for other preprocedural examination (principal); K14.8 Other diseases of tongue; I10 Essential (primary) hypertension; J44.9 Chronic obstructive pulmonary disease, unspecified; Z87.891 Personal history of nicotine dependence | CPT/HCPCS: 99214 ==

== ENCOUNTER 2024-11-18 13:47 | Emergency (ER) | payer OTHER, MEDICAID, SELFPAY ==
[2024-11-18 13:52] VITALS: BP 142/88; PULSE 84; RESP 17; TEMP 36.7; O2SAT 96; BMI 27.4
--- OUTSIDE RECORDS SUMMARY | 2024-11-18 14:01 | XMS_ITS | Encounter Summary ---
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 Role Phone Unavailable Primary Care Provider Unavailabl e Encounter Details Date Type Department Care Team (Latest Contact Info) Description 03/20/1999 Outpatient Historical [facility] Tirso Tesfaye MD NO ADDRESS ON FILE Backache, unspecified (Primary Dx); Unequal leg length Social History Tobacco Use Types Packs/Day Years Used Date Smoking Tobacco: Never Assessed Sex and Gender Information Value Date Recorded Sex Assigned at Not on file Legal Sex Male 4:41 AM [employer] Gender Identity Not on file Sexual Orientation Not on file documented as of this encounter Plan of Treatment Not on file documented as of this encounter Visit Diagnoses Diagnosis Backache, unspecified- Primary Unequal leg length Unequal leg length (acquired) documented in this encounter
--- OUTSIDE RECORDS SUMMARY | 2024-11-18 14:01 | XMS_ITS | Patient Health Record ---
Author Organization [facility] Address [address] [place] [address] Care Team Providers Care Sky Diver Name Role Phone Uriel MUNOZ, Michael Primary Care Provider Unavailab ramses Maria-Susy Graves Unavailable [phone] Mike Penny DO Unavailable Unavailable Yun Smallwood Unavailable [phone] Allergies No Known Allergies Results Component Value Reference Range Flag Notes Urine Drug Screen (cup read) - [id number] Reviewed date:02/26/2024 11:35:57 AM Interpretation:Abnormal Performing Lab: Notes/Report: Abnormal AMP - SHANTA - BUP - BZO + MDMA - OPI + PCP - OXY + Urine Drug Screen (cup read) - [id number] Reviewed date:02/20/2024 08:07:15 AM Interpretation: Performing Lab: Notes/Report: AMP - SHANTA - BUP - BZO + MDMA - OPI + PCP - OXY + MTD - MAMP - Urine Drug Screen (cup read) - [id number] Reviewed date:10/26/2024 10:31:34 AM Interpretation: Performing Lab: Notes/Report: AMP - SHANTA - BUP - BZO - MDMA - OPI - PCP - OXY - MTD - MAMP - Urine Drug Screen (cup read) - [id number] Reviewed date:07/22/2024 10:49:35 AM Interpretation: Performing Lab: Notes/Report: BZO Pos OPI Pos Urine Drug Screen (cup read) - [id number] Reviewed date:06/17/2024 10:33:48 AM Interpretation: Performing Lab: Notes/Report: AMP + BZO + MDMA + OPI + OXY + MAMP + zzzUrine Drug Screen (confir mation by instrument) - [id number] Reviewed date:04/20/2024 12:43:00 PM Interpretation: Performing Lab: Notes/Report: Urine Confirmation Panel (in strument) - [id number] Reviewed date:11/02/2024 10:32:24 AM Interpretation: Performing Lab: Notes/Report: 6-Acetylmorphine 0 <6 ng/mL N This mary t was developed and its performance characteristics determined by [facility]. It has not been cleared or approved by the U.S. Food and Drug Administration. 7-Aminoclonazepam 0 <60 ng/mL N This te st was developed and its performance characteristics determined by [facility]. It has not been cleared or approved by the U.S. Food and Drug Administration. Alprazolam 0 <60 ng/mL N This test was developed and its performance characteristics determined by [facility]. It has not been cleared or approved by the U.S. Food and Drug Administration. Amphetamine 0 <75 ng/mL N This test was developed and its performance characteristics determined by [facility]. It has not been cleared or approved by the U.S. Food and Drug Administration. aOH-Alprazolam 16 <60 ng/mL N This test was developed and its performance characteristics determined by [facility]. It has not been cleared or approved by the U.S. Food and Drug Administration. Buprenorphine 0.0 <7.5 ng/mL N This test w as developed and its performance characteristics determined by [facility]. It has not been cleared or approved by the U.S. Food and Drug Administration. Norbuprenorphine 0.0 <37.5 ng/mL N This te st was developed and its performance characteristics determined by [facility]. It has not been cleared or approved by the U.S. Food and Drug Administration. Carisoprodol 0 <75 ng/mL N This test wa s developed and its performance characteristics determined by [facility]. It has not been cleared or approved by the U.S. Food and Drug Administration. Codeine 0 <75 ng/mL N This test was developed and its performance characteristics determined by [facility]. It has not been cleared or approved by the U.S. Food and Drug Administration. EDDP 0 <75 ng/mL N This test was developed and its performance characteristics determined by [facility]. It has not been cleared or approved by the U.S. Food and Drug Administration. Fentanyl 14 <6 ng/mL H This test was developed and its performance characteristics determined by [facility]. It has not been cleared or approved by the U.S. Food and Drug Administration. Hydrocodone 197 <75 ng/mL H This test was developed and its performance characteristics determined by [facility]. It has not been cleared or approved by the U.S. Food and Drug Administration. Hydromorphone 108 <75 ng/mL H This test w as developed and its performance characteristics determined by [facility]. It has not been cleared or approved by the U.S. Food and Drug Administration. Lorazepam 0 <60 ng/mL N This test was developed and its performance characteristics determined by [facility]. It has not been cleared or approved by the U.S. Food and Drug Administration. MDMA 0 <75 ng/mL N This test was developed and its performance characteristics determined by [facility]. It has not been cleared or approved by the U.S. Food and Drug Administration. Meperidine 0.0 <37.5 ng/mL N This test was developed and its performance characteristics determined by [facility]. It has not been cleared or approved by the U.S. Food and Drug Administration. Meprobamate 0 <75 ng/mL N This test was developed and its performance characteristics determined by [facility]. It has not been cleared or approved by the U.S. Food and Drug Administration. Methamphetamine 11 <75 ng/mL N This test was developed and its performance characteristics determined by [facility]. It has not been cleared or approved by the U.S. Food and Drug Administration. Methadone 0 <75 ng/mL N This test was developed and its performance characteristics determined by [facility]. It has not been cleared or approved by the U.S. Food and Drug Administration. Morphine 0 <75 ng/mL N This test was developed and its performance characteristics determined by [facility]. It has not been cleared or approved by the U.S. Food and Drug Administration. Nordiazepam 0 <60 ng/mL N This test was developed and its performance characteristics determined by [facility]. It has not been cleared or approved by the U.S. Food and Drug Administration. Norfentanyl 85 <6 ng/mL H This test was developed and its performance characteristics determined by [facility]. It has not been cleared or approved by the U.S. Food and Drug Administration. Normeperidine 0.0 <37.5 ng/mL N This test was developed and its performance characteristics determined by [facility]. It has not been cleared or approved by the U.S. Food and Drug Administration. O-desmethyltramadol 0 <75 ng/mL N This test was developed and its performance characteristics determined by [facility]. It has not been cleared or approved by the U.S. Food and Drug Administration. Oxazepam 0 <60 ng/mL N This test was developed and its performance characteristics determined by [facility]. It has not been cleared or approved by the U.S. Food and Drug Administration. Oxycodone 0.0 <37.5 ng/mL N This test was developed and its performance characteristics determined by [facility]. It has not been cleared or approved by the U.S. Food and Drug Administration. Oxymorphone 0 <75 ng/mL N This test was developed and its performance characteristics determined by [facility]. It has not been cleared or approved by the U.S. Food and Drug Administration. Phencyclidine 0.0 <7.5 ng/mL N This test w as developed and its performance characteristics determined by [facility]. It has not been cleared or approved by the U.S. Food and Drug Administration. Tapentadol 5.9 <37.5 ng/mL N This test was developed and its performance characteristics determined by [facility]. It has not been cleared or approved by the U.S. Food and Drug Administration. Temazepam 0 <60 ng/mL N This test was developed and its performance characteristics determined by [facility]. It has not been cleared or approved by the U.S. Food and Drug Administration. Tramadol 0 <75 ng/mL N This test was developed and its performance characteristics determined by [facility]. It has not been cleared or approved by the U.S. Food and Drug Administration. Norhydrocodone 488 <75 ng/mL H This test was developed and its performance characteristics determined by [facility]. It has not been cleared or approved by the U.S. Food and Drug Administration. Noroxycodone 0 <38 ng/mL N This test wa s developed and its performance characteristics determined by [facility]. It has not been cleared or approved by the U.S. Food and Drug Administration. Pregabalin >53683 <225 ng/mL > This test was developed and its performance characteristics determined by [facility]. It has not been cleared or approved by the U.S. Food and Drug Administration. Gabapentin 71 <225 ng/mL N This test was developed and its performance characteristics determined by [facility]. It has not been cleared or approved by the U.S. Food and Drug Administration. Benzoylecgonine 0.0 <37.5 ng/mL N This mary t was developed and its performance characteristics determined by [facility]. It has not been cleared or approved by the U.S. Food and Drug Administration. 4-Hydroxy Xylazine 0 <25 ng/mL N This t est was developed and its performance characteristics determined by [facility]. It has not been cleared or approved by the U.S. Food and Drug Administration. Urine Confirmation Panel (in strument) - [id number] Reviewed date:07/27/2024 02:51:06 PM Interpretation: Performing Lab: Notes/Report: 6-Acetylmorphine 0 <6 ng/mL N This mary t was developed and its performance characteristics determined by [facility]. It has not been cleared or approved by the U.S. Food and Drug Administration. 7-Aminoclonazepam 0 <60 ng/mL N This te st was developed and its performance characteristics determined by [facility]. It has not been cleared or approved by the U.S. Food and Drug Administration. Alprazolam 47 <60 ng/mL N This test was developed and its performance characteristics determined by [facility]. It has not been cleared or approved by the U.S. Food and Drug Administration. Amphetamine 0 <75 ng/mL N This test was developed and its performance characteristics determined by [facility]. It has not been cleared or approved by the U.S. Food and Drug Administration. aOH-Alprazolam 93 <60 ng/mL H This test was developed and its performance characteristics determined by [facility]. It has not been cleared or approved by the U.S. Food and Drug Administration. Buprenorphine 0.0 <7.5 ng/mL N This test w as developed and its performance characteristics determined by [facility]. It has not been cleared or approved by the U.S. Food and Drug Administration. Norbuprenorphine 0.0 <37.5 ng/mL N This te st was developed and its performance characteristics determined by [facility]. It has not been cleared or approved by the U.S. Food and Drug Administration. Carisoprodol 0 <75 ng/mL N This test wa s developed and its performance characteristics determined by [facility]. It has not been cleared or approved by the U.S. Food and Drug Administration. Codeine 0 <75 ng/mL N This test was developed and its performance characteristics determined by [facility]. It has not been cleared or approved by the U.S. Food and Drug Administration. EDDP 0 <75 ng/mL N This test was developed and its performance characteristics determined by [facility]. It has not been cleared or approved by the U.S. Food and Drug Administration. Fentanyl 0 <6 ng/mL N This test was developed and its performance characteristics determined by [facility]. It has not been cleared or approved by the U.S. Food and Drug Administration. Hydrocodone 464 <75 ng/mL H This test was developed and its performance characteristics determined by [facility]. It has not been cleared or approved by the U.S. Food and Drug Administration. Hydromorphone 7 <75 ng/mL N This test w as developed and its performance characteristics determined by [facility]. It has not been cleared or approved by the U.S. Food and Drug Administration. Lorazepam 0 <60 ng/mL N This test was developed and its performance characteristics determined by [facility]. It has not been cleared or approved by the U.S. Food and Drug Administration. MDMA 0 <75 ng/mL N This test was developed and its performance characteristics determined by [facility]. It has not been cleared or approved by the U.S. Food and Drug Administration. Meperidine 0.0 <37.5 ng/mL N This test was developed and its performance characteristics determined by [facility]. It has not been cleared or approved by the U.S. Food and Drug Administration. Meprobamate 0 <75 ng/mL N This test was developed and its performance characteristics determined by [facility]. It has not been cleared or approved by the U.S. Food and Drug Administration. Methamphetamine 0 <75 ng/mL N This test was developed and its performance characteristics determined by [facility]. It has not been cleared or approved by the U.S. Food and Drug Administration. Methadone 0 <75 ng/mL N This test was developed and its performance characteristics determined by [facility]. It has not been cleared or approved by the U.S. Food and Drug Administration. Morphine 0 <75 ng/mL N This test was developed and its performance characteristics determined by [facility]. It has not been cleared or approved by the U.S. Food and Drug Administration. Nordiazepam 0 <60 ng/mL N This test was developed and its performance characteristics determined by [facility]. It has not been cleared or approved by the U.S. Food and Drug Administration. Norfentanyl 1 <6 ng/mL N This test was developed and its performance characteristics determined by [facility]. It has not been cleared or approved by the U.S. Food and Drug Administration. Normeperidine 0.0 <37.5 ng/mL N This test was developed and its performance characteristics determined by [facility]. It has not been cleared or approved by the U.S. Food and Drug Administration. O-desmethyltramadol 0 <75 ng/mL N This test was developed and its performance characteristics determined by [facility]. It has not been cleared or approved by the U.S. Food and Drug Administration. Oxazepam 0 <60 ng/mL N This test was developed and its performance characteristics determined by [facility]. It has not been cleared or approved by the U.S. Food and Drug Administration. Oxycodone 0.0 <37.5 ng/mL N This test was developed and its performance characteristics determined by [facility]. It has not been cleared or approved by the U.S. Food and Drug Administration. Oxymorphone 0 <75 ng/mL N This test was developed and its performance characteristics determined by [facility]. It has not been cleared or approved by the U.S. Food and Drug Administration. Phencyclidine 0.0 <7.5 ng/mL N This test w as developed and its performance characteristics determined by [facility]. It has not been cleared or approved by the U.S. Food and Drug Administration. Tapentadol 0.0 <37.5 ng/mL N This test was developed and its performance characteristics determined by [facility]. It has not been cleared or approved by the U.S. Food and Drug Administration. Temazepam 0 <60 ng/mL N This test was developed and its performance characteristics determined by [facility]. It has not been cleared or approved by the U.S. Food and Drug Administration. Tramadol 0 <75 ng/mL N This test was developed and its performance characteristics determined by [facility]. It has not been cleared or approved by the U.S. Food and Drug Administration. Norhydrocodone 339 <75 ng/mL H This test was developed and its performance characteristics determined by [facility]. It has not been cleared or approved by the U.S. Food and Drug Administration. Noroxycodone 0 <38 ng/mL N This test wa s developed and its performance characteristics determined by [facility]. It has not been cleared or approved by the U.S. Food and Drug Administration. Pregabalin 0 <225 ng/mL N This test was developed and its performance characteristics determined by [facility]. It has not been cleared or approved by the U.S. Food and Drug Administration. Gabapentin 0 <225 ng/mL N This test was developed and its performance characteristics determined by [facility]. It has not been cleared or approved by the U.S. Food and Drug Administration. Benzoylecgonine 0.0 <37.5 ng/mL N This mary t was developed and its performance characteristics determined by [facility]. It has not been cleared or approved by the U.S. Food and Drug Administration. 4-Hydroxy Xylazine 0 <25 ng/mL N This t est was developed and its performance characteristics determined by [facility]. It has not been cleared or approved by the U.S. Food and Drug Administration. Urine Confirmation Panel (in strument) - [id number] Reviewed date:06/22/2024 03:41:26 PM Interpretation: Performing Lab: Notes/Report: 6-Acetylmorphine 0 <6 ng/mL N This mary t was developed and its performance characteristics determined by [facility]. It has not been cleared or approved by the U.S. Food and Drug Administration. 7-Aminoclonazepam 0 <60 ng/mL N This te st was developed and its performance characteristics determined by [facility]. It has not been cleared or approved by the U.S. Food and Drug Administration. Alprazolam 1863 <60 ng/mL H This test was developed and its performance characteristics determined by [facility]. It has not been cleared or approved by the U.S. Food and Drug Administration. Amphetamine 0 <75 ng/mL N This test was developed and its performance characteristics determined by [facility]. It has not been cleared or approved by the U.S. Food and Drug Administration. aOH-Alprazolam >4000 <60 ng/mL > This test was developed and its performance characteristics determined by [facility]. It has not been cleared or approved by the U.S. Food and Drug Administration. Buprenorphine 0.0 <7.5 ng/mL N This test w as developed and its performance characteristics determined by [facility]. It has not been cleared or approved by the U.S. Food and Drug Administration. Norbuprenorphine 11.9 <37.5 ng/mL N This te st was developed and its performance characteristics determined by [facility]. It has not been cleared or approved by the U.S. Food and Drug Administration. Carisoprodol 0 <75 ng/mL N This test wa s developed and its performance characteristics determined by [facility]. It has not been cleared or approved by the U.S. Food and Drug Administration. Codeine 0 <75 ng/mL N This test was developed and its performance characteristics determined by [facility]. It has not been cleared or approved by the U.S. Food and Drug Administration. EDDP 0 <75 ng/mL N This test was developed and its performance characteristics determined by [facility]. It has not been cleared or approved by the U.S. Food and Drug Administration. Fentanyl 0 <6 ng/mL N This test was developed and its performance characteristics determined by [facility]. It has not been cleared or approved by the U.S. Food and Drug Administration. Hydrocodone 3220 <75 ng/mL H This test was developed and its performance characteristics determined by [facility]. It has not been cleared or approved by the U.S. Food and Drug Administration. Hydromorphone 0 <75 ng/mL N This test w as developed and its performance characteristics determined by [facility]. It has not been cleared or approved by the U.S. Food and Drug Administration. Lorazepam 0 <60 ng/mL N This test was developed and its performance characteristics determined by [facility]. It has not been cleared or approved by the U.S. Food and Drug Administration. MDMA 2273 <75 ng/mL H This test was developed and its performance characteristics determined by [facility]. It has not been cleared or approved by the U.S. Food and Drug Administration. Meperidine 0.0 <37.5 ng/mL N This test was developed and its performance characteristics determined by [facility]. It has not been cleared or approved by the U.S. Food and Drug Administration. Meprobamate 0 <75 ng/mL N This test was developed and its performance characteristics determined by [facility]. It has not been cleared or approved by the U.S. Food and Drug Administration. Methamphetamine 0 <75 ng/mL N This test was developed and its performance characteristics determined by [facility]. It has not been cleared or approved by the U.S. Food and Drug Administration. Methadone 0 <75 ng/mL N This test was developed and its performance characteristics determined by [facility]. It has not been cleared or approved by the U.S. Food and Drug Administration. Morphine 0 <75 ng/mL N This test was developed and its performance characteristics determined by [facility]. It has not been cleared or approved by the U.S. Food and Drug Administration. Nordiazepam 0 <60 ng/mL N This test was developed and its performance characteristics determined by [facility]. It has not been cleared or approved by the U.S. Food and Drug Administration. Norfentanyl 0 <6 ng/mL N This test was developed and its performance characteristics determined by [facility]. It has not been cleared or approved by the U.S. Food and Drug Administration. Normeperidine 0.0 <37.5 ng/mL N This test was developed and its performance characteristics determined by [facility]. It has not been cleared or approved by the U.S. Food and Drug Administration. O-desmethyltramadol 0 <75 ng/mL N This test was developed and its performance characteristics determined by [facility]. It has not been cleared or approved by the U.S. Food and Drug Administration. Oxazepam 0 <60 ng/mL N This test was developed and its performance characteristics determined by [facility]. It has not been cleared or approved by the U.S. Food and Drug Administration. Oxycodone 0.0 <37.5 ng/mL N This test was developed and its performance characteristics determined by [facility]. It has not been cleared or approved by the U.S. Food and Drug Administration. Oxymorphone 0 <75 ng/mL N This test was developed and its performance characteristics determined by [facility]. It has not been cleared or approved by the U.S. Food and Drug Administration. Phencyclidine 0.0 <7.5 ng/mL N This test w as developed and its performance characteristics determined by [facility]. It has not been cleared or approved by the U.S. Food and Drug Administration. Tapentadol 0.0 <37.5 ng/mL N This test was developed and its performance characteristics determined by [facility]. It has not been cleared or approved by the U.S. Food and Drug Administration. Temazepam 0 <60 ng/mL N This test was developed and its performance characteristics determined by [facility]. It has not been cleared or approved by the U.S. Food and Drug Administration. Tramadol 0 <75 ng/mL N This test was developed and its performance characteristics determined by [facility]. It has not been cleared or approved by the U.S. Food and Drug Administration. Norhydrocodone >5000 <75 ng/mL > This test was developed and its performance characteristics determined by [facility] Services. It has not been cleared or approved by the U.S. Food and Drug Administration. Noroxycodone 0 <38 ng/mL N This test wa s developed and its performance characteristics determined by [facility]. It has not been cleared or approved by the U.S. Food and Drug Administration. Pregabalin 2748 <225 ng/mL H This test was developed and its performance characteristics determined by [facility]. It has not been cleared or approved by the U.S. Food and Drug Administration. Gabapentin 0 <225 ng/mL N This test was developed and its performance characteristics determined by [facility]. It has not been cleared or approved by the U.S. Food and Drug Administration. Benzoylecgonine 0.0 <37.5 ng/mL N This mary t was developed and its performance characteristics determined by [facility]. It has not been cleared or approved by the U.S. Food and Drug Administration. 4-Hydroxy Xylazine 0 <25 ng/mL N This t est was developed and its performance characteristics determined by [facility]. It has not been cleared or approved by the U.S. Food and Drug Administration. Tox Results Reviewed date:11/02/2024 03:03:02 PM Interpretation: Performing Lab: Notes/Report: Tox Results Reviewed date:07/27/2024 03:01:11 PM Interpretation: Performing Lab: Notes/Report: Tox Results Reviewed date:06/22/2024 03:38:48 PM Interpretation: Performing Lab: Notes/Report: Reason For Referral Reason Cervical spondylosis Diagnosis 1 Chronic pain syndrom e (G89.4) Referral Organization [facility] Referring Provider First Name Susy Referring Provider Last Name Crow Star Referring Provider Speciality Pain Medic ine Referred Provider Physical Therapy [facility] Referred Provider Specialty Physical [facility] Referral Priority Routine Reason Eval and Tx Cervical Spondylosis Diagnosis 1 Spondylosis without myelopathy or radiculopathy, cervical region (M47.812) Referral Organization [facility] Referring Provider First Name Susy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 myalgia, I discussed with the patient pursuing trigger point injections with ultrasound guidance. Risks and expectations of the procedure were discussed with the patient, and they agree to proceed. Ultrasound is needed for needle localization into specific muscle groups and to decrease the risk of intravascular injection as well as decrease the risk of pneumothorax. The options for treatment were explained in detail, this included PT, medications, injections, lifestyle modifications and exercise. Will proceed with ultrasound guided trigger point injections of the cervical paraspinals 01/27/2024 Other Patient is a very pleasant gentleman with history and physical exam consistent of cervical spondylosis mediated pain. I will start off with conservative management with PT and see how he is doing after about 1 month. The options for treatment were explained in detail, this included PT, medications, injections, lifestyle modifications and exercise. The patient presents to clinic for medication evaluation and management. The patient is stable on their current medication regimen and endorses adequate analgesia, increased ADLs, denies abuse and side effects. The BULB PLANTER was reviewed with no untoward events noted. UDS reviewed and is as expected. A bowel regimen was discussed with the patient. The patient was informed that the combination of benzodiazepines with opiates may cause serious health problems. These problems can be life-threatening. Patient was advised to never to take these two medications together. They have been prescribed narcan. - Hydrocodone 7.5/325 mg every 4-6 hours as needed not to exceed 3 per day, dispense #90, first fill 02/04/2024 - Patient already has Narcan available to him - Lyrica 25 mg BID, dispense #60, 0 refills, first fill 01/27/2024 - Physical therapy for cervical spondylosis - Follow up in 1 month for reevaluation. At that time, we can consider cervical medial branch blocks. Kanchan Llanes am scribing for Dr. Graves. Dr. Star Llanes, personally performed the services described in this documentation, as scribed by Kanchan Shaffer, and it is both accurate and complete. 02/24/2024 Other Kanchan Llanes am scribing for Dr. Graves. Dr. Star Llanes, personally performed the services described in this documentation, as scribed by Kanchan Shaffer, and it is both accurate and complete. Total time spent caring for the patient today was greater than 25 minutes. This includes time spent before the visit reviewing the chart, time spent during the visit, and time spent after the visit on documentation 04/13/2024 Other Kanchan Llanes am scribing for Dr. Graves. Dr. Star Llanes, personally performed the services described in this documentation, as scribed by Kanchan Shaffer, and it is both accurate and complete. 08/03/2024 Kanchan Dee am scribing for Dr. Graves. Dr. Star Llanes, personally performed the services described in this documentation, as scribed by Kanchan Shaffer, and it is both accurate and complete. 08/31/2024 Other Kanchan Llanes am scribing for Dr. Graves. Dr. Star Llanes, personally performed the services described in this documentation, as scribed by Kanchan Shaffer, and it is both accurate and complete. 10/26/2024 Other I, Regi Short, am scribing for Dr. Graves. I, Dr. Graves, personally performed the services described in this documentation, as scribed by Regi Short, and it is both accurate and complete. Plan Of Treatment Pending Test Test Name Order Date Lumbosacral Spine Comp w/ Bending-[id number] 10/26/2024 Future Test Test Name Order Date Inj. Trigger Point(s), 1 or 2 muscles, ( Piriformis Injection) - 10/27/2024 Next Appt Details Provider Name:Susy Llanes Shantijoycelyn Sarah, 12/28/2024 09:40:00 AM, [address] [place], [address], Insurance Providers Payer Name Payer Address Payer Phone Subscriber Number Group Number Insured Name Patient Relationship to Insured Coverage Start Date Coverage End Date UHC Medicare Dual Complete PPO [address] [address] [place] [address] [id number] Tam Ospina Self - patient is the insured [place] Medicaid [address] [place] [address] [id number] Tam Ospina Self - patient is the insured UHC Medicare Dual Complete PPO [address] [address] [place] [address] [id number] Tam Ospina Self - patient is the insured 5 5 Medical (General) History Medical History History ICD Code Arthritis Hypertension COPD Asthma headache/migraines Insomnia incontinence
--- OUTSIDE RECORDS SUMMARY | 2024-11-18 14:01 | XMS_ITS | Clinical Summary ---
Author Organization [facility] Address [address] [place] [address] Phone Care Team Providers Care Shank Piece Tacker Name Role Phone Nettie Whalen [place] DAVIDSON Primary Care Provider [phone] Allergies Active Allergy Reactions Criticality Noted Date Comments Codeine Abdominal Pain Low 10/31/2023 Medications ALPRAZolam (XANAX XR) 1 mg Extended Release 24 hour tablet Take 1 mg by mouth 2 times daily. Active amLODIPine (NORVASC) 5 mg tablet Take 5 mg by mouth daily. Active HYDROcodone-aceta minophen (NORCO) 10-325 mg Tablet Take 1 Tablet by mouth every 4 hours as needed for Pain, Moderate. Active baclofen (LIORESAL) 20 mg tablet Take 5 mg by mouth 3 times daily. Active fluticasone propion-salmetero L (ADVAIR DISKUS,WIXELA INHUB) 250-50 mcg/dose disk inhaler Take 1 Puff by inhalation 2 times daily. Active albuterol sulfate HFA 90 mcg/actuation aerosol inhaler Take 2 Puffs by inhalation every 6 hours as needed for Shortness of Breath. Active gabapentin (NEURONTIN) 300 mg capsuleIndication s:Lumbar disc disease with radiculopathy take 1 capsule BY MOUTH TWICE DAILY and TWO AT BEDTIME 360 Capsule 4 Active Active Problems Problem Noted Date Diagnosed Date Backache 11/06/2023 Degenerative lumbar disc 11/06/2023 Lumbar disc disease with radiculopathy 4 Hypertension 10/31/2023 GERD without esophagitis 10/31/2023 COPD (chronic obstructive pulmonary disease) Encounters Date Type Department Care Team Description 11/16/2024 External Device Data [facility] Provider, Abstract 11/03/2024 External Device Data [facility] Provider, Abstract 10/26/2024 External Device Data [facility] Provider, Abstract 09/29/2024 External Device Data [facility] Provider, Abstract 09/29/2024 External Device Data [facility] Provider, Abstract 09/01/2024 External Device Data [facility] Provider, Abstract 09/01/2024 External Device Data [facility] Provider, Abstract from Last 3 Months Social History Tobacco Use Types Packs/Day Years Used Date Smoking Tobacco: Every Day Cigarettes Passive Smoke Exposure: Current Smokeless Tobacco: Never Tobacco Cessation:Ready to Q uit: No; Counseling Given: Yes Alcohol Use Standard Drinks/Week Comments Not Currently 0 (1 standard drink = 0.6 oz pur e alcohol) Sex and Gender Information Value Date Recorded Sex Assigned at Not on file 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 Gender Identity Not on file Sexual Orientation Not on file Last Filed Vital Signs Vital Sign Reading Time Taken Comments Blood Pressure 126/68 10/31/2023 11:12 AM CDT Pulse 88 10/31/2023 11:12 AM CDT Temperature 36.8 C (98.3 F) 10/31/2023 11:12 AM CDT Respiratory Rate 20 10/31/2023 11:1 2 AM CDT Oxygen Saturation 96% 10/31/2023 11: 12 AM CDT Inhaled Oxygen Concentration - - Weight 79.3 kg (174 lb 12.8 oz) 024 11:12 AM CDT Height 162.6 cm (5' 4 ) 10/31/2023 11:1 2 AM CDT Body Mass Index 30 10/31/2023 11:12 AM CDT Plan of Treatment Health Maintenance Due Date Last Done Comments FIT/ DNA Q 3 YEARS (AUTO ORDER) 06/02/1979 FIT/FOBT Q 1 YEAR (AUTO ORDER) 06/02/1979 FLEX SIG/CT COLONOGRAPHY Q 5 YEARS (AUTO ORDER) 1979 COLORECTAL CANCER SCREENING (AUTO ORDER) 2006 COLORECTAL SCREENING 2006 Colorectal Cancer Screening (AUTO ORDER) 2006 Colorectal Cancer Screening 2006 FIT-DNA Q 3 years 2006 FIT/FOBT Q 1 year 2006 Flex Sig/CT Colonography Q 5 years 2006 ZOSTER VACCINE (1 of 2) 06/02/2011 DTAP/TDAP/TD VACCINES (1 - Tdap) 11/30/2020 11/30/19 21 RSV VACCINE (60+ or ) (1 - Risk 60-74 years 1-dose series) 2021 Medicare Advantage ([place]) Prev entative Visit/Annual Wellness Visit 03/17/2024 INFLUENZA VACCINE (#1) [address] [place] [address] [place] [address] DUAL COMPLETE PPO DSNP [facility] [id number] Care Teams Shank Piece Tacker Relationship Specialty Start Date End Date Nettie Whalen DO [address] [place] [address] PCP - General Family Practice 10/31/23
--- OUTSIDE RECORDS SUMMARY | 2024-11-18 14:01 | XMS_ITS | Clinical Summary ---
Author Organization [facility] Address [address] 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
--- OUTSIDE RECORDS SUMMARY | 2024-11-18 14:01 | XMS_ITS | Encounter Summary ---
Author Organization [facility] Address [address] [place] [address] Care Team Providers Care Manager Environmental Health And Safety Name Role Phone Nettie Whalen DO Primary Care Provider [phone] Encounter Details Date Type Department Care Team (Late st Contact Info) Description 11/16/2024 External Device Data [facility] Provider, Abstract NO ADDRESS ON FILE Social History Tobacco Use Types Packs/Day Years Used Date Smoking Tobacco: Every Day Cigarettes Passive Smoke Exposure: Current Smokeless Tobacco: Never Alcohol Use Standard Drinks/Week Comments Not Currently 0 (1 standard drink = 0.6 oz pur e alcohol) Sex and Gender Information Value Date Recorded Sex Assigned at Not on file 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
--- NOTE | 2024-11-18 15:43 | CTR_ITS ---
PROCEDURE INFORMATION: Exam: CT Head Without Contrast Exam date and time: 11/18/2024 4:38 PM Age: 64 years old Clinical indication: Other: General weakness TECHNIQUE: Imaging protocol: Computed tomography of the head without contrast. Radiation optimization: All CT scans at this facility use at least one of these dose optimization techniques: automated exposure control; mA and/or kV adjustment per patient size (includes targeted exams where dose is matched to clinical indication); or iterative reconstruction. COMPARISON: CT head wo con* [id number] 06/15/2024 6:50 PM RADIATION DOSE METRICS: Total DLP (mGy-cm): 1069.44 FINDINGS: Brain: Stable mild atrophic changes. Normal valdes-white matter differentiation. No evidence of acute intracranial hemorrhage or mass. Calcification cavernous portions of the internal carotid arteries and of the right vertebral artery. Cerebral ventricles: No ventriculomegaly. Paranasal sinuses: Visualized sinuses are unremarkable. No fluid levels. Mastoid air cells: Visualized mastoid air cells are well aerated. Bones: Unremarkable. No acute fracture. Soft tissues: Unremarkable. CT/CT head wo con* [id number] IMPRESSION: No acute intracranial abnormality.
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
--- NOTE | 2024-11-18 15:58 | ECG_ITS ---
[facility]: 2024-[facility]-18 Pat Name: Tam Ospina Department: Room: Gender: Male Room Attendant: : 1960 Requested By: Maria G Hankins Order Number: [id number] Lyle MD: Sunday Storm M.D. Measurements Intervals Gideon Rate: 79 P: 74 HI: 151 QRS: 70 QRSD: 129 T: 39 QT: 385 QTc: 443 Interpretive Statements SINUS RHYTHM RIGHT BUNDLE BRANCH BLOCK [120+ ms QRS DURATION, UPRIGHT V1, 40+ ms S IN I/aVL/V4/V5/V6] Compared to ECG 06/15/2024 15:54:41 Sinus tachycardia no longer present Electronically Signed On 11-19-2024 09:11:06 CDT by Sunday Storm M.D. [email or web address]
[2024-11-18 15:59] LABS: Hematocrit 49.3 % (37-53); Hemoglobin 15.80 g/dL (11.27-16.99); Mean Corpuscular HGB Conc 32.0 g/dL (30-55); Mean Corpuscular Hemoglobin 29.8 pg (27-33); Mean Corpuscular Volume 93.0 fl (82-101); Nucleated Red Blood Cells % 0 %; Platelet Count 240 10^3/cmm (157-399); Red Blood Count 5.30 10^6/uL (3.85-5.65); White Blood Count 9.94 10^3/uL (3.29-11.43)
[2024-11-18 16:11] LABS: INR 0.86 (0.8-1.2); Prothrombin Time 12.30 SECONDS (12.1-14.9)
[2024-11-18 16:18] LABS: Glucose Urine UA Negative (Normal); Nitrate Urine Negative (Negative); Specific Gravity, Urine 1.024 (1.005-1.030)
[2024-11-18 16:21] LABS: Add Urine Microscopic? YES
[2024-11-18 16:26] LABS: Alanine Aminotransferase 15 U/L (0-41); Albumin Level 4.3 g/dL (3.5-5.2); Alkaline Phosphatase 103 U/L (40-130); Anion Gap 19.8 (5-19); Aspartate Amino Transferase 13 U/L (0-40); Blood Urea Nitrogen 13 mg/dL (8-23); Calcium 9.2 mg/dL (8.5-10.5); Carbon Dioxide 19 mmol/L (22-29); Chloride 108 mmol/L (98-107); Creatinine Clr Calc Pharmacy 102.1124; Globulin 3.4 g/dL (1.3-4.6); Glucose 98 mg/dL (65-115); Osmolality Calculated 296 mOsm/kg (285-295); Potassium 3.8 mmol/L (3.5-5.1); Sodium 143 mmol/L (136-145); Total Protein 7.7 g/dL (6.6-8.7)
[2024-11-18 16:56] VITALS: BP 138/92; PULSE 78; RESP 16; O2SAT 96
[2024-11-18 17:00] VITALS: BP 138/92; PULSE 80; O2SAT 97
[2024-11-18 18:00] VITALS: BP 141/107; PULSE 77; RESP 19; O2SAT 96
[2024-11-18 18:37] VITALS: BP 132/95; PULSE 76; O2SAT 95
--- NOTE | 2024-11-18 20:39 | DCPLANNER ---
Message sent to neurology and MRI request sent to centralized scheduling -
== END 2024-11-18 18:38 | disposition home or self-care (01) ==
PROVIDERS: Emergency Medicine; Emergency Provider Family Medicine; PCP Family Medicine
DX: R53.1 Weakness (principal); I10 Essential (primary) hypertension; Z87.891 Personal history of nicotine dependence
CPT/HCPCS: 36415; 70450; 80053; 81001; 85025; 85610; 93005; 99284

== ENCOUNTER 2024-12-08 09:36 | Outpatient (CLI) | payer OTHER, MEDICAID, SELFPAY ==
--- NOTE | 2024-12-08 09:42 | MR_ITS ---
WS: [id number] MRI BRAIN WITH AND WITHOUT CONTRAST HISTORY: WEAKNESS COMPARISON: CT head 11/18/2024 TECHNIQUE: Multiplanar imaging performed through the brain with MultiHance 15 ml's IV. No acute infarcts are seen. Thakkar-white matter differentiation is well preserved. Very mild cerebral atrophy. Minimal small vessel changes in the subcortical white matter of the supratentorial brain. No large infarcts. No hippocampal atrophy. No susceptibility artifacts or prior lacunar infarcts. Ventricles and extra-axial spaces are normal. Clivus and pituitary gland are normal. Visualized posterior fossa and brainstem are also normal. No enhancing masses. Venous angioma RIGHT frontal lobe. Dural venous sinuses are normal. Paranasal sinuses: Well aerated with no significant disease. Mastoid air cells: Normal. Calvarium and scalp: Normal. MR/MR head wo/w con [id number] IMPRESSION: 1. No acute infarct. Normal diffusion imaging. 2. Mild cerebral atrophy and small vessel disease. 3. No enhancing intracranial mass. 4. RIGHT frontal lobe venous angioma. 5. No hippocampal atrophy.
[2024-12-08] MEDS: gadobenate dimeglumine 20 mL vial 15 ML IV (10:15)
== END 2024-12-08 09:37 | disposition home or self-care (01) ==
PROVIDERS: PCP Family Medicine; Visit Provider Family Medicine
DX: G31.9 Degenerative disease of nervous system, unspecified (principal); I67.82 Cerebral ischemia
CPT/HCPCS: 70553

== ENCOUNTER 2025-02-08 18:20 | Inpatient (IN) | payer MEDICARE, MEDICAID, SELFPAY ==
--- OUTSIDE RECORDS SUMMARY | 2024-04-27 04:00 | XMS_ITS ---
Author Organization [facility] Address [address] [place] [address] Care Team Providers Care Garageman Name Role Phone Michael Trevino MD Primary Care Provider Unavailab Susy Lopez Unavailable Mike Penny DO Unavailable Unavailable REASON FOR VISIT 2 month f/u Medications Medication SIG (Take, Route, Frequency, Duration) Notes Start Date End Date Status HYDROcodone-Acetamin ophen 10-325 MG Tablet 1 tablet as needed Orally every 4-6 hrs; Duration: 30 days As needed not to exceed 3 a day 1st fill 04/24/24 2nd fill 05/24/24 may fill 1-2 days early if closed 04/13/2024 06/23/2024 Active Lyrica 50 MG Capsule 1 capsule Orally twice a day; Duration: 30 days Fill 04/24/24 may fill 1-2 days early if closed 04/13/2024 06/12/2024 Active HYDROcodone-Acetamin ophen 10-325 MG Tablet 1 tablet as needed Orally every 4-6 hrs; Duration: 30 days As needed not to exceed 3 a day 1st fill 04/24/24 2nd fill 05/24/24 may fill 1-2 days early if closed 04/13/2024 05/24/2024 Active Narcan 4 MG/0.1ML Liquid as directed Nasally 01/27/2024 Active Gabapentin Active amLODIPine Besylate Active ALPRAZolam Active Baclofen Active Social History Tobacco Use: Social History Observation Description Date Details (start date - stop date) Current Smoker NA - NA Social History Household: Social Info Question Answer Notes Household Marital status: Tobacco Use: Social Info Question Answer Notes Tobacco Control (Standard) Tobacco use: Current smoker How often do you smoke cigarettes? Every day How many cigarettes a day do you smoke? 6-10 Tobacco use other than smoking: Are you an other tobacco user? Yes Additional Details Category Social Info Options Details Miscellaneous: Current Employment Status Unemployed- On Disabillity Drugs/Alcohol: Do you drink alcohol? No Problems Problem Type SNOMED Code ICD Code Onset Dates Problem Status W/U Status Risk Notes Problem Lumbosacral spondylosis (893253348) Lumbosacral spondylosis (M47.817) Active confirmed Encounters Encounter Location Date Provider Diagnosis [facility] [place] [address] [place] [address] 04/27/2024 Susy cordova Chronic pain syndrome G89.4 ; Idiopathic peripheral neuropathy G60.9 ; Spondylosis without myelopathy or radiculopathy, cervical region M47.812 ; Myalgia of auxiliary muscles, head and neck M79.12 ; Lumbosacral spondylosis M47.817 ; care home (current) use of opiate analgesic Z79.891 and History of benzodiazepine use Z87.898 Assessments Encounter Date Diagnosis (ICD Code) Assessment Notes Treatment Notes Treatment Clinical Notes Section Notes 04/27/2024 Chronic pain syndrome (ICD-10 - G89.4) 04/27/2024 Idiopathic peripheral neuropathy (ICD-10 - G60.9) 04/27/2024 Spondylosis without myelopathy or radiculopathy, cervical region (ICD-10 - M47.812) 04/27/2024 Myalgia of auxiliary muscles, head and neck (ICD-10 - M79.12) 04/27/2024 Lumbosacral spondylosis (ICD-10 - M47.817) 04/27/2024 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 Disc spaces are mildly, narrowed and dessicated throughout the cervical spine. There is a small amount of increased T2 signal in the visuazlied T3 vertebral body with moderstae disc space narrowing at T3/T4. There is a small central disc protrusion at T3/T4 encroaching upon the ventral thecal sac. Signal within the cervical cord is normal. Visualized posterior fossa is unremarkable. Craniocervical junction, C1 and C2 relationship, odontoid process and soft tissues are normal C2-C3: normal. C3-C4: small central disc protrusion. Mild facet arthritis. Small amount of marrow edema LEFT C3 articular facet. There is also a small amount of adjacent fluid in the LEFT C2-C3 facet joint. Moderate bilateral foraminal stenosis. C4-C5: Mild annular disc bulging with bialteral facet arthritis, LEFT greater than RIGHT. moderate-sized foraminal osteophytes. Severe RIGHTand moderate LEFT formainl stenosis. C5-C6: Osteophytic ridging and facet disease. Effacement of CSF. Severe central and bialteral foraminal stenosis. C6-C7: Small central disc protrusion and facet arthritis. Mild central and foraminal stenosis. C7-T1: Normal Paraspinal soft tissue are normal Original HPI:. Patient presetns to my clinic to establish care. He is being referred by his neurosurgeon, Dr. Penny, for lower back as well as neck, hip, knee, and ankle pain that's been going on for the last 20 years. Pain is 7-8/10 and described as numb, stabbing, burning, pins and needles, cramping, sharp, throbbing, deep, shooting, tender, and tingling sensations. Nothing seems to alleviate his symptoms. Walking, bending, and moving seem to aggravate his symptoms. He's been taking Baclofen 20 mg, Alprazolam 1 mg, and Gabapentin 100 mg for his symptoms. He's a current smoker. He's been to another pain clinic with Dr. Byrd, but he was dismissed. He's had previous injections. He's not tried hypnosis, acupuncture, herbal therapies, biofeedback, or a TENS unit for his pain. In the past, he's tried Codeine, Hydrocodone, Oxycodone, Tramadol, Ibuprofen, Meloxicam, Naproxen, Lyrica, Pregabalin, Soma, and Baclofen. Pain Details Pain Location : , Generalized (all over) Duration Onset Frequency of Pain Severity of pain at its worst : , :, 8 0 Severity of pain at its best : , 510 Severity of average pain : , 510 Worsening factors Relieving factors Associated symptoms Severity of pain on medication : , 06/24 When did you last take your pain medicin e : , today Medication Details Do you have a lock b ox or safe place for medication away from minors and/or others? Yes , Yes Do you have any leftover pain medication building up at your house? No , No Do you understand that pain medication can be addicting and can cause overdose? Yes , Yes Do you feel you can REDUCE the amount of medication you take today? No , No Opioid Assessment Tools SOAPP-R (Screene r/Opioid Assessment for Patient) : , :, 7-20 : Indicates moderate risk for abuse. Patient will subsequently be monitored by clinic policy at least every two to three months with urine drug screen testing. Pill counts will be performed at every visit Progress Notes * Tam OSPINA WDOB:[birth year] (64 yo M)Acc No.[id number]:04/27/2024 Progress Notes Patient: Tam Lund Provider: Andriy Lopez MD :1960 A ge:63 Y S ex:Male Date:04/27/2024 Address:[address] [place], [place] [id number] Pcp:Michael Trevino MD Subjective: * Chief Complaints: * 2 month f/u * HPI: P ain Details: Pain Location : , G eneralized (all over). Severity of pain at its worst : , :, 10/24. Severity of pain at its best : , 5/10. Severity of pain on medication : , 4/10. Severity of average pain : , 5/10. When did you last take your pain medicine : , today. M edication Details: Do you have a lock box or safe place for medication away from minors and/or others? Y es , Yes. Do you have any leftover pain medication building up at your house? N o , No. Do you understand that pain medication can be addicting and can cause overdose? Y es , Yes. Do you feel you can REDUCE the amount of medication you take today? N o , No. O pioid Assessment Tools: SOAPP-R (Screener/Opioid Assessment for Patient) : , :, 7-20 : Indicates moderate risk for abuse. Patient will subsequently be monitored by clinic policy at least every two to three months with urine drug screen testing. Pill counts will be performed at every visit. Frankie arevalo Note: Patient presents today for re-evaluation. - - - - - - - - - - - - - - - - - - - - - - - - - - - - - - - - - - - - - - - - - Last UDS Confirmation:pending, last one not enough sample Consent for chronic opioid therapy/clinic policies: 11/18/23 JOSE: 50% 04/13/24 SOAPP-R: 16 Physical Therapy: yes, dates: winter Bowel/bladder incontinence - Denies - - - - - - - - - - - - - - - - - - - - - - - - - - - - - - - - - - - - - - - - -. Interventions: None at this time Pertinent Imagin08/14/23 MRI C-spine Slight increase in the cervical lordosis, 2 mm retrolisthesis of C4. Disc spaces are mildly, narrowed and dessicated throughout the cervical spine. There is a small amount of increased T2 signal in the visuazlied T3 vertebral body with moderstae disc space narrowing at T3/T4. There is a small central disc protrusion at T3/T4 encroaching upon the ventral thecal sac. Signal within the cervical cord is normal. Visualized posterior fossa is unremarkable. Craniocervical junction, C1 and C2 relationship, odontoid process and soft tissues are normal C2-C3: normal. C3-C4: small central disc protrusion. Mild facet arthritis. Small amount of marrow edema LEFT C3 articular facet. There is also a small amount of adjacent fluid in the LEFT C2-C3 facet joint. Moderate bilateral foraminal stenosis. C4-C5: Mild annular disc bulging with bialteral facet arthritis, LEFT greater than RIGHT. moderate-sized foraminal osteophytes. Severe RIGHTand moderate LEFT formainl stenosis. C5-C6: Osteophytic ridging and facet disease. Effacement of CSF. Severe central and bialteral foraminal stenosis. C6-C7: Small central disc protrusion and facet arthritis. Mild central and foraminal stenosis. C7-T1: Normal Paraspinal soft tissue are normal Original HPI:. Patient presetns to my clinic to establish care. [facility] is being referred by his neurosurgeon, Dr. Penny, for lower back as well as neck, hip, knee, and ankle pain that's been going on for the last 20 years. Pain is 7- 8/10 and described as numb, stabbing, burning, pins and needles, cramping, sharp, throbbing, deep, shooting, tender, and tingling sensations. Nothing seems to alleviate his symptoms. Walking, bending, and moving s eem to aggravate his symptoms. He's been taking Baclofen 20 mg, Alprazolam 1 mg, and Gabapentin 100 mg for his symptoms. He's a current smoker. He's been to another pain clinic with Dr. Byrd, but he was dismissed. He's had previous i njections. He's not tried hypnosis, acupuncture, herbal therapies, biofeedback, or a TENS unit for his pain. In the past, he's tried Codeine, Hydrocodone, Oxycodone, Tramadol, Ibuprofen, Meloxicam, Naproxen, Lyrica, Pregabalin, Soma, and Baclofen. * Medical History: Arthritis Hypertension COPD Asthma Headache/migraines Insomnia Incontinence * Family History: Arthtitis, Diabetes, Glaucoma, Heart dissease, Hypertension. * Social History: T obacco Use: T obacco Control (Standard) T obacco use: C urrent smoker H ow often do you smoke cigarettes? E very day H ow many cigarettes a day do you smoke? 6 -10 Tobacco use other than smoking A re you an other tobacco user? Y es D rugs/Alcohol: D o you drink alcohol?: No. M iscellaneous: Daron mejias Employment Status: Unemployed- On Disabillity. H ousehold: H ousehold M arital status: m arried * Medications: T akingALPRAZolam amLODIPine Besylate Baclofen Gabapentin HYDROcodone- Acetaminophen 10-325 MG Tablet 1 tablet as needed Orally every 4-6 hrs As needed not to exceed 3 a day, stop date 05/24/2024, Notes to Pharmacist: 1st fill 04/24/24 2nd fill 05/24/24 may fill 1-2 days early if closedHYDROcodone-Acetaminophen 10-325 MG Tablet 1 tablet as needed Orally every 4-6 hrs As needed not to exceed 3 a day, stop date 06/23/2024, Notes to Pharmacist: 1st fill 04/24/24 2nd fill 05/24/24 may fill 1-2 days early if closedLyrica 50 MG Capsule 1 capsule Orally twice a day , stop date 06/12/2024, Notes to Pharmacist: Fill 04/24/24 may fill 1-2 days early if closedNarcan 4 MG/0.1ML Liquid as directed Nasally Taking ALPRAZolam Taking amLODIPine Besylate Taking Baclofen Taking Gabapentin Taking HYDROcodone-Acetaminophen 10-325 MG Tablet 1 tablet as needed Orally every 4-6 hrs As needed not to exceed 3 a day, stop date 05/24/2024, Notes to Pharmacist: 1st fill 04/24/24 2nd fill 05/24/24 may fill 1-2 days early if closedTaking HYDROcodone-Acetaminophen 10-325 MG Tablet 1 tablet as needed Orally every 4-6 hrs As needed not to exceed 3 a day, stop date 06/23/2024, Notes to Pharmacist: 1st fill 04/24/24 2nd fill 05/24/24 may fill 1-2 days early if closedTaking Lyrica 50 MG Capsule 1 capsule Orally twice a day , stop date 06/12/2024, Notes to Pharmacist: Fill 04/24/24 may fill 1-2 days early if closedTaking Narcan 4 MG/0.1ML Liquid as directed Nasally Assessment: * Assessment: 1. C hronic pain syndrome - G89.4 (Primary) 2 . I diopathic peripheral neuropathy - G60.9 3 . S pondylosis without myelopathy or radiculopathy, cervical region - M47.812 4 . M yalgia of auxiliary muscles, head and neck - M79.12 & #160; 5 . L umbosacral spondylosis - M47.817 6 . L jessica term (current) use of opiate analgesic - Z79.891 7 . H istory of benzodiazepine use - Z87.898 Billing Information: * Procedure Codes: Care Plan Details* * Electronic signature of Shirlene Lopez MD on 02/08/2025 at 06:29 PM LEAD CLINICAL RESEARCH COORDINATOR Sign off status: Pending * Provider: Andriy Lopez MD Date: 0 04/27/2024 Generated for Nikhil odom/Erwin/Bg on: 1 04/10/2024 06:29 PM LEAD CLINICAL RESEARCH COORDINATOR
[2025-02-08 18:18] VITALS: BP 128/83; PULSE 83; RESP 14; TEMP 36.9; O2SAT 94
--- NOTE | 2025-02-08 18:23 | CTR_ITS ---
PROCEDURE INFORMATION: Exam: CT Head Without Contrast Exam date and time: 02/08/2025 6:36 PM Age: 64 years old Clinical indication: Altered mental status/memory loss; Additional info: AMS TECHNIQUE: Imaging protocol: Computed tomography of the head without contrast. Radiation optimization: All CT scans at this facility use at least one of these dose optimization techniques: automated exposure control; mA and/or kV adjustment per patient size (includes targeted exams where dose is matched to clinical indication); or iterative reconstruction. COMPARISON: MR head wo/w con [id number] 12/08/2024 9:49 AM RADIATION DOSE METRICS: Total DLP (mGy-cm): 1357.58 FINDINGS: Brain: Normal. No hemorrhage. Unremarkable white matter. No mass effect or acute infarct. Cerebral ventricles: No ventriculomegaly. No midline shift. Paranasal sinuses: Visualized sinuses are unremarkable. No fluid levels. Mastoid air cells: Visualized mastoid air cells are well aerated. Bones: Unremarkable. No acute fracture. Soft tissues: Unremarkable. CT/CT head wo con* [id number] IMPRESSION: No acute intracranial abnormality.
--- NOTE | 2025-02-08 18:23 | XRR_ITS ---
PROCEDURE INFORMATION: Exam: XR Chest Exam date and time: 02/08/2025 6:25 PM Age: 64 years old Clinical indication: Other: AMS TECHNIQUE: Imaging protocol: Radiologic exam of the chest. Views: 1 view. COMPARISON: CT angio chest PE protcl [id number] 06/15/2024 6:50 PM FINDINGS: Lungs: Unremarkable. No consolidation or mass. Pleural spaces: Unremarkable. No pleural effusion. No pneumothorax. Heart/Mediastinum: Unremarkable. No cardiomegaly. Bones/joints: Unremarkable. XR/XR chest 1V portable [id number] IMPRESSION: No acute findings.
--- NOTE | 2025-02-08 18:24 | ECG_ITS ---
[facility]: 2025-[facility]08 Pat Name: Tam Ospina Department: Room: Gender: Male Glass Bulb Silverer: : 1960 Requested By: Maria G Hankins Order Number: [id number] Lyle MD: Jamel Ruiz M.D. Measurements Intervals [place] Rate: 82 P: 59 WI: 149 QRS: 67 QRSD: 122 T: 37 QT: 400 QTc: 470 Interpretive Statements SINUS RHYTHM RIGHT BUNDLE BRANCH BLOCK [120+ ms QRS DURATION, UPRIGHT V1, 40+ ms S IN I/aVL/V4/V5/V6] Compared to ECG 11/18/2024 15:58:44 No significant changes Electronically Signed On 02-10-2025 17:46:44 CHEESE SPECIALIST by Jamel Ruiz M.D. [email or web address]
--- OUTSIDE RECORDS SUMMARY | 2025-02-08 18:29 | XMS_ITS | Clinical Summary ---
Author Organization [employer] Address [address] 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
--- OUTSIDE RECORDS SUMMARY | 2025-02-08 18:29 | XMS_ITS | Encounter Summary ---
Author Organization [facility] Address [address] [place] [address] Care Team Providers Care Supervisor Record Press Name Role Phone Unavailable Primary Care Provider [...] on file Legal Sex Male 4:41 AM GRAPHICS INTERN Gender Identity Not on file Sexual Orientation Not on file documented as of this encounter Plan of Treatment Not on file documented as of this encounter Visit Diagnoses Diagnosis Backache, unspecified- Primary Unequal leg length Unequal leg length (acquired) documented in this encounter
--- OUTSIDE RECORDS SUMMARY | 2025-02-08 18:29 | XMS_ITS | Clinical Summary ---
Author Organization [facility] Address [address] [place] [address] Phone Care Team Providers Care Fraud Prevention Analyst Name Role Phone Nettie Whalen [place] DAVIDSON Primary Care Provider [phone] Allergies Active Allergy Reactions Criticality Noted Date [...] Encounters Date Type Department Care Team Description 02/01/2025 External Device Data ST[facility] ABSTRACTION Provider, Abstract 01/05/2025 External Device Data [facility] ABSTRACTION Provider, Abstract 11/23/2024 External Device Data [facility] ABSTRACTION Provider, Abstract 11/16/2024 External Device Data [facility] ABSTRACTION Provider, [...] on file 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 Gender Identity Not on file Sexual Orientation [...] Flex Sig/CT Colonography Q 5 years 2006 RSV VACCINE (60+ or ) (1 - Risk 50-74 years 1-dose series) 06/02/2011 ZOSTER VACCINE (1 of 2) 06/02/2011 DTAP/TDAP/TD VACCINES (1 - Tdap) 11/30/2020 11/30/19 21 Medicare Advantage ([place]) Prev entative Visit/Annual Wellness Visit 03/17/2024 INFLUENZA VACCINE (#1) 2024 Insurance MEDICAID [facility] [facility] DUAL COMPLETE PPO [facility] [id number] Care Teams Fraud Prevention Analyst Relationship Specialty Start Date End Date Nettie Whalen DO [address] [place] [address] PCP - General Family Practice 10/31/23
--- OUTSIDE RECORDS SUMMARY | 2025-02-08 18:29 | XMS_ITS | Encounter Summary ---
Author Organization [facility] Address 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
--- OUTSIDE RECORDS SUMMARY | 2025-02-08 18:29 | XMS_ITS | Patient Health Record ---
Author Organization [facility] Address [address] [place] [address] Care Team Providers Care Child Care Director Name Role Phone Michael Trevino MD Primary Care Provider Unavailab ramses Maria-Susy Graves Unavailable Mike Penny DO Unavailable Unavailable Yun Smallwood Unavailable [phone] Allergies No Known Allergies Results Component Value Reference Range Flag Notes Urine Drug Screen (cup read) - [id number] Reviewed date:07/22/2024 10:49:35 AM Interpretation: Performing Lab: Notes/Report: BZO Pos OPI Pos Urine Confirmation Panel (in strument) - [id number] Reviewed date:07/27/2024 02:51:06 PM Interpretation: Performing Lab: [...] Administration. Urine Confirmation Panel (in strument) - [id number] Reviewed date:06/22/2024 03:41:26 PM Interpretation: Performing Lab: [...] the U.S. Food and Drug Administration. Urine Drug Screen (cup read) - 16345 Reviewed date:06/17/2024 10:33:48 AM Interpretation: Performing Lab: Notes/Report: AMP + BZO + MDMA + OPI + OXY + MAMP + Urine Drug Screen (cup read) - [id number] Reviewed date:02/26/2024 11:35:57 AM Interpretation:Abnormal Performing Lab: Notes/Report: Abnormal AMP - SHANTA - BUP - BZO + MDMA - OPI + PCP - OXY + Tox Results Reviewed date:11/02/2024 03:03:02 PM Interpretation: Performing Lab: Notes/Report: Tox Results Reviewed date:07/27/2024 03:01:11 PM Interpretation: Performing Lab: Notes/Report: zzzUrine Drug Screen (confir mation by instrument) - [id number] Reviewed date:04/20/2024 12:43:00 PM Interpretation: Performing Lab: Notes/Report: Tox Results Reviewed date:06/22/2024 03:38:48 PM Interpretation: Performing Lab: Notes/Report: Urine Confirmation Panel (in strument) - [id number] Reviewed date:11/02/2024 10:32:24 AM Interpretation: Performing Lab: [...] the U.S. Food and Drug Administration. Pregabalin >12645 <225 ng/mL > This test was developed [...] the U.S. Food and Drug Administration. Urine Drug Screen (cup read) - 26801 Reviewed date:10/26/2024 10:31:34 AM Interpretation: Performing Lab: Notes/Report: AMP - SHANTA - BUP - BZO - MDMA - OPI - PCP - OXY - MTD - MAMP - Reason For Referral Reason Eval and Tx Cervical Spondylosis Diagnosis 1 Spondylosis without myelopathy or radiculopathy, cervical region (M47.812) Referral Organization [facility] Referring Provider First Name Susy Referring Provider Last Name Betitogordon Faith Referring Provider Speciality Pain Medic ine Referred Provider [facility] Referred Provider Specialty Preventive M edicine Referral Priority Routine Reason Evaluate and Treat L S spondylosis Diagnosis 1 Lumbosacral spondylo sis (M47.817) Referral Organization [facility] Referring Provider First Name Susy Referring Provider Last Name Crow Cuevas Referring Provider Speciality Pain Medic ine Referred Provider Katelyn Dsouza Referred Provider Specialty Home Health Referral Priority Routine Medications Medication SIG (Take, Route, Frequency, Duration) Notes Start Date End Date Status fentaNYL 12 MCG/HR Patch 72 Hour 1 patch to skin Transdermal every 72 hours; Duration: 30 days fill 02/02/25 12/28/2024 03/04/2025 Active Cyclobenzaprine HCl 10 mg Tablet TAKE 1 TABLET BY MOUTH TWICE DAILY; Duration: 30 Active ALPRAZolam Active Pregabalin 75 MG Capsule 1 capsule Orall y twice a day; Duration: 30 days fill 01/03/25 12/28/2024 02/26/2025 Active Gabapentin Active amLODIPine Besylate Active Baclofen Active Cyclobenzaprine HCl 10 MG Tablet 1 tablet Orally twice a day; Duration: 30 days 12/28/2024 Active Narcan 4 MG/0.1ML Liquid as directed Nasally 01/26 Active HYDROcodone-Acetaminophe n 10-325 MG Tablet 0.5-1 tablet as needed Orally every 4-6 hrs; Duration: 30 days As needed must last 30 days fill 02/02/25 12/28/2024 03/04/2025 Active Social History Tobacco Use: Social History [...] Status Risk Notes Problem Chronic pain syndrome (609080041) Chronic pain syndrome (G89.4) Active confirmed Problem Cervical spondylosis without myelopathy (790800721) Spondylosis without myelopathy or radiculopathy, cervical region (M47.812) Active confirmed Problem High risk drug monitoring status (608873730) half-way (current) use of opiate analgesic (Z79.891) Active confirmed Problem Myalgia of auxiliary muscles, head and neck (M79.12) Active confirmed Problem Cervical spondylosis (330903180) Cervical spondylosis (M47.812) Active confirmed Problem Idiopathic peripheral neuropathy (47986021) Idiopathic peripheral neuropathy (G60.9) Active confirmed Problem Lumbosacral spondylosis (230005604) Lumbosacral spondylosis (M47.817) Active confirmed Problem Long-term current use of drug therapy (225748629) Benzodiazepine use agreement exists (Z79.899) Active confirmed Vital Signs Height-cm 165.1 cm 12/28/2024 Weight-kg 74.84 kg 12/28/2024 Height 65 in 12/28/2024 Weight 165 lbs 12/28/2024 BMI 27.45 kg/m2 12/28/2024 Encounters Encounter Location Date Provider Diagnosis [facility] [address] [place] [phone] 10/26/2024 Susy cordova Chronic pain syndrome G89.4 ; Idiopathic peripheral neuropathy G60.9 ; Spondylosis without myelopathy or radiculopathy, cervical region M47.812 ; Myalgia of auxiliary muscles, head and neck M79.12 ; Lumbosacral spondylosis M47.817 ; intermediate manager (current) use of opiate analgesic Z79.891 ; History of benzodiazepine use Z87.898 and Cervical spondylosis M47.812 [facility] [place] [address] [place] [address] 08/31/2024 Susy cordova Chronic pain syndrome G89.4 ; Idiopathic peripheral neuropathy G60.9 ; Spondylosis without myelopathy or radiculopathy, cervical region M47.812 ; Myalgia of auxiliary muscles, head and neck M79.12 ; Lumbosacral spondylosis M47.817 ; intermediate manager (current) use of opiate analgesic Z79.891 and History of benzodiazepine use Z87.898 [facility] [address] [place] [address] 08/03/2024 Susy Ever Chronic pain syndrome G89.4 ; Idiopathic peripheral neuropathy G60.9 ; Spondylosis without myelopathy or radiculopathy, cervical region M47.812 ; Myalgia of auxiliary muscles, head and neck M79.12 ; Lumbosacral spondylosis M47.817 ; Cigarette nicotine dependence without complication F17.210 ; intermediate manager (current) use of opiate analgesic Z79.891 and History of benzodiazepine use Z87.898 [facility] [address] [address] 07/22/2024 Yun Smallwood Chronic pain syndrom e G89.4 ; Lumbosacral spondylosis M47.817 ; Idiopathic peripheral neuropathy G60.9 ; Myalgia of auxiliary muscles, head and neck M79.12 ; Spondylosis without myelopathy or radiculopathy, cervical region M47.812 ; intermediate manager (current) use of opiate analgesic Z79.891 and History of benzodiazepine use Z87.898 [facility] [address] [address] 06/17/2024 Yun Smallwood Chronic pain syndrom e G89.4 ; Lumbosacral spondylosis M47.817 ; Idiopathic peripheral neuropathy G60.9 ; Myalgia of auxiliary muscles, head and neck M79.12 ; Spondylosis without myelopathy or radiculopathy, cervical region M47.812 ; half-way (current) use of opiate analgesic Z79.891 and History of benzodiazepine use Z87.898 [facility] [address] [address] 04/13/2024 Susy CamachoKamila tasha Chronic pain syndrome G89.4 ; Idiopathic peripheral neuropathy G60.9 ; Spondylosis without myelopathy or radiculopathy, cervical region M47.812 ; Myalgia of auxiliary muscles, head and neck M79.12 ; Lumbosacral spondylosis M47.817 ; half-way (current) use of opiate analgesic Z79.891 and History of benzodiazepine use Z87.898 [facility] [place] [address] [place] [address] 02/24/2024 Susy CamachoKamila tasha Chronic pain syndrome G89.4 ; Idiopathic peripheral neuropathy G60.9 ; Spondylosis without myelopathy or radiculopathy, cervical region M47.812 ; Myalgia of auxiliary muscles, head and neck M79.12 and intermediate manager (current) use of opiate analgesic Z79.891 [facility] [address] [address] 12/28/2024 Susy cordova Chronic pain syndrome G89.4 ; Idiopathic peripheral neuropathy G60.9 ; Spondylosis without myelopathy or radiculopathy, cervical region M47.812 ; Myalgia of auxiliary muscles, head and neck M79.12 ; Lumbosacral spondylosis M47.817 ; intermediate manager (current) use of opiate analgesic Z79.891 ; History of benzodiazepine use Z87.898 and Benzodiazepine use agreement exists Z79.899 [facility] [place] [address] [place] [address] 06/17/2024 Susy cordova Chronic pain syndrome G89.4 [facility] [address] [address] 04/09/2024 Susy cordova [facility] [place] [address] [place] [address] 11/17/2024 Susy CamachoKamila tasha [facility] [address] [place] [address] 07/22/2024 Susy MoserkhanhJeff cordova Chronic pain syndrome G89.4 Assessments Encounter Date Diagnosis (ICD Code) Assessment Notes Treatment Notes Treatment Clinical Notes Section Notes 02/24/2024 Idiopathic peripheral neuropathy (ICD-10 - G60.9) [...] ADLs, denies abuse and side effects. The EDUCATIONAL AIDE was reviewed with no untoward events noted. [...] up in 2 months with nurse practitioner. 02/24/2024 Chronic pain syndrome (ICD-10 - G89.4) [...] ADLs, denies abuse and side effects. The EDUCATIONAL AIDE was reviewed with no untoward events noted. [...] any side effects with the medication increase. 04/13/2024 Idiopathic peripheral neuropathy (ICD-10 - G60.9) [...] is able to proceed. His UDS at [id number] today showed positive for oxycodone, opiates, amphetamine, [...] effects are noted. Last UDS and [place] EDUCATIONAL AIDE reviewed today. Patient is advised that best [...] policy. 06/17/2024 Lumbosacral spondylosis (ICD-10 - M47.817) 06/17/2024 Chronic pain syndrome (ICD-10 - G89.4) [...] He states he was busy with the [employer] and had to take extra. I had [...] effects are noted. Last UDS and [place] EDUCATIONAL AIDE reviewed today. Patient is advised that best [...] MMEs for that. He previously was getting [place] 10/325 mg 3 tablets a day which [...] 08/03/2024 Idiopathic peripheral neuropathy (ICD-10 - G60.9) 08/31/2024 Chronic pain syndrome (ICD-10 - G89.4) [...] for triggerpoint injections of the cervical paraspinals 12/28/2024 Chronic pain syndrome (ICD-10 - G89.4) Mr. Ospina is a gentleman with long-standing chronic pain in his neck, hip and knees, as well as cervical spondylosis and lumbosacral spondylosis. Still pending his lumbosacral X-ray. He is on Lyrica 75mg BID, [place] 10 mg with 15 tablets per month, and Fentanyl patch 12 mcg every 72 hours. He had contacted our office that his patches were eaten by rodents, but he subsequently found them as they had fallen back behind his drawer. The PDMP was reviewed with no untoward events. Last UDS confirmation was consistent with prescribed medication at that time. The options for treatment were explained in detail, this included PT, medications, injections, lifestyle modifications and exercise. The patient presents to clinic for medication evaluation and management. The patient is stable on their current medication regimen and endorses adequate analgesia, increased ADLs, denies abuse and side effects. A bowel regimen was discussed with the patient. I will see him back in 2 months. 12/28/2024 Idiopathic peripheral neuropathy (ICD-10 - G60.9) 12/28/2024 Spondylosis without myelopathy or radiculopathy, cervical region (ICD-10 - M47.812) 10/26/2024 Idiopathic peripheral neuropathy (ICD-10 - G60.9) 08/31/2024 Idiopathic peripheral neuropathy (ICD-10 - G60.9) 08/03/2024 Spondylosis without myelopathy or radiculopathy, cervical region (ICD-10 - M47.812) 07/22/2024 Lumbosacral spondylosis (ICD-10 - M47.817) 06/17/2024 Idiopathic peripheral neuropathy (ICD-10 - G60.9) 02/24/2024 Spondylosis without myelopathy or radiculopathy, cervical region (ICD-10 - M47.812) 04/13/2024 Spondylosis without myelopathy or radiculopathy, cervical region (ICD-10 - M47.812) 02/24/2024 Myalgia of auxiliary muscles, head and [...] or radiculopathy, cervical region (ICD-10 - M47.812) 12/28/2024 Myalgia of auxiliary muscles, head and neck (ICD-10 - M79.12) 12/28/2024 Lumbosacral spondylosis (ICD-10 - M47.817) 10/26/2024 Myalgia of auxiliary muscles, head and neck (ICD-10 - M79.12) 08/03/2024 Lumbosacral spondylosis (ICD-10 - M47.817) 08/31/2024 Myalgia of auxiliary muscles, head and neck (ICD-10 - M79.12) 07/22/2024 Myalgia of auxiliary muscles, head and neck (ICD-10 - M79.12) 06/17/2024 Spondylosis without myelopathy or radiculopathy, cervical region (ICD-10 - M47.812) 04/13/2024 Lumbosacral spondylosis (ICD-10 - M47.817) 02/24/2024 half-way (current) use of opiate analgesic (ICD-10 - [...] to abide by our urine testing policy. 04/13/2024 half-way (current) use of opiate analgesic (ICD-10 - [...] abide by our urine testing policy. 06/17/2024 half-way (current) use of opiate analgesic (ICD-10 - Z79.891) 07/22/2024 Spondylosis without myelopathy or radiculopathy, cervical region (ICD-10 - M47.812) 08/03/2024 Cigarette nicotine dependence without complication (ICD-10 - F17.210) 08/31/2024 Lumbosacral spondylosis (ICD-10 - M47.817) 10/26/2024 Lumbosacral spondylosis (ICD-10 - M47.817) 12/28/2024 intermediate manager (current) use of opiate analgesic (ICD-10 - Z79.891) 12/28/2024 History of benzodiazepine use (ICD-10 - Z87.898) 10/26/2024 half-way (current) use of opiate analgesic (ICD-10 - [...] to abide by our urine testing policy. 08/03/2024 intermediate manager (current) use of opiate analgesic (ICD-10 - Z79.891) 08/31/2024 half-way (current) use of opiate analgesic (ICD-10 - Z79.891) 07/22/2024 intermediate manager (current) use of opiate analgesic (ICD-10 - Z79.891) 06/17/2024 History of benzodiazepine use (ICD-10 - Z87.898) 04/13/2024 History of benzodiazepine use (ICD-10 - [...] History of benzodiazepine use (ICD-10 - Z87.898) 12/28/2024 Benzodiazepine use agreement exists (ICD-10 - Z79.899) The patient was informed that the combination of benzodiazepines with opiates may cause serious health problems. These problems can be life-threatening. Patient was advised to never to take these two medications together. They have been prescribed Naloxone nasal spray and understand how to use it and patient reports that it is not . As part of our assessment and formulation of a safe and effective treatment plan, we will reach out to their benzodiazipine prescriber and obtain provided documentation that patient has been trialed with non benzodiazipine pharmacologic agents and that their evaluation demonstrates that benzodiazepines appear to be the most appropriate option for thepatients clinical status in accordance to prescribing standards and regulatory guidance. This document will be kept on file. 10/26/2024 Cervical spondylosis (ICD-10 - M47.812) Patient [...] trigger point injections of the cervical paraspinals 02/24/2024 Kanchan Dee am scribing for Dr. Graves. [...] spent after the visit on documentation 04/13/2024 Kanchan Dee am scribing for Dr. Graves. Dr. Star Llanes, personally performed the services described in this documentation, as scribed by Kanchan Shaffer, and it is both accurate and complete. 08/03/2024 Kanchan Dee am scribing for Dr. Graves. Dr. Star Llanes, personally performed the services described in this documentation, as scribed by Kanchan Shaffer, and it is both accurate and complete. 08/31/2024 Kanchan Dee am scribing for Dr. Graves. Dr. Star Llanes, personally performed the services described in this documentation, as scribed by Kanchan Shaffer, and it is both accurate and complete. 10/26/2024 Regi Dee am scribing for Dr. Graves. Dr. Star Llanes, personally performed the services described in this documentation, as scribed by Regi Short, and it is both accurate and complete. 12/28/2024 Patrick Dee am scribing for Dr. Susy Lopez. I, Susy Lyuksyutova-Graves, personally performed the services described in this documentation, as scribed by Patrick Craft, and it is both accurate and complete. Plan Of Treatment Pending Test Test Name Order Date Lumbosacral Spine Comp w/ Bending-[id number] 10/26/2024 Future Test Test Name Order Date Inj. Trigger Point(s), 1 or 2 muscles, ( Piriformis Injection) - [id number] 10/27/2024 Next Appt Details Provider Name:Susy Stout Sarah, 03/01/2025 10:00:00 AM, [address] [place], [address], Insurance Providers Payer Name Payer Address Payer Phone Subscriber Number Group Number Insured Name Patient Relationship to Insured Coverage Start Date Coverage End Date U[employer] Medicare Dual Complete PPO [address] [address] [place] [id number] Tam Ospina Self - patient is the insured [place] Medicaid [address] [place] [address] [phone] [id number] Tam Ospina Self - patient is the insured U[employer] Medicare Dual Complete PPO [address] [address] [place] [address] [phone] [id number] CHITOSTam Molina Self - patient is the insured 5 5 Medical (General) History Medical History History ICD Code Arthritis Hypertension COPD Asthma headache/migraines Insomnia incontinence
[2025-02-08 18:33] LABS: Hematocrit 47.9 % (37-53); Hemoglobin 15.90 g/dL (11.27-16.99); Mean Corpuscular HGB Conc 33.2 g/dL (30-55); Mean Corpuscular Hemoglobin 29.8 pg (27-33); Mean Corpuscular Volume 89.7 fl (82-101); Nucleated Red Blood Cells % 0 %; Platelet Count 252 10^3/cmm (157-399); Red Blood Count 5.34 10^6/uL (3.85-5.65); White Blood Count 12.51 10^3/uL (3.29-11.43)
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
[2025-02-08 18:40] LABS: ABG PCO2 44.5 mmHg (35-45); ABG PH Result 7.39 (7.35-7.45); Arterial Blood Gas Hematocrit 47.7 % (42-52); Blood Gas Operator Identificat AMH; Blood Gas Sample Site Brachial, left; Blood Gas Sample Type Arterial; Carboxyhemoglobin 1.5 %THgb (0.4-20.1); HCO3 ABG 26.8 mmol/L (22-26); Methemoglobin 0.1 % (0.4-1.5); PO2 ABG 65.5 mmHg (80.0-100.0); PO2 FiO2 Ratio Arterial Blood 311
[2025-02-08 18:52] LABS: INR 0.84 (0.8-1.2); Prothrombin Time 12.20 SECONDS (12.1-14.9)
[2025-02-08 19:10] LABS: Alanine Aminotransferase 11 U/L (0-41); Albumin Level 4.4 g/dL (3.5-5.2); Alkaline Phosphatase 109 U/L (40-130); Anion Gap 17.0 (5-19); Aspartate Amino Transferase 14 U/L (0-40); Blood Urea Nitrogen 12 mg/dL (8-23); Calcium 9.0 mg/dL (8.5-10.5); Carbon Dioxide 26 mmol/L (22-29); Chloride 103 mmol/L (98-107); Globulin 3.1 g/dL (1.3-4.6); Glucose 126 mg/dL (65-115); Magnesium 2.1 mg/dL (1.7-2.3); Osmolality Calculated 295 mOsm/kg (285-295); Potassium 4.0 mmol/L (3.5-5.1); Sodium 142 mmol/L (136-145); Thyroid Stimulating Hormone 0.79 uIU/mL (0.27-4.20); Total Protein 7.5 g/dL (6.6-8.7)
[2025-02-08 19:13] LABS: Alcohol Level < 10 mg/dL (0-10)
[2025-02-08 19:41] LABS: Glucose Urine UA Negative (Normal); Nitrate Urine Negative (Negative); Specific Gravity, Urine 1.017 (1.005-1.030)
[2025-02-08 19:42] VITALS: BP 106/91; PULSE 88; RESP 16; O2SAT 96
[2025-02-08 19:45] LABS: Add Urine Microscopic? YES
[2025-02-08 19:48] LABS: PCP Screen Urine Negative (Negative)
[2025-02-08 20:53] VITALS: BP 112/76
[2025-02-08 20:58] LABS: Ammonia 43 umol/L (16-60)
[2025-02-08 21:29] VITALS: BP 132/73; PULSE 99; RESP 17; TEMP 36.4; O2SAT 99
[2025-02-08 22:40] VITALS: BP 109/64; PULSE 85; RESP 17; TEMP 36.5; O2SAT 94
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
[2025-02-08 23:58] LABS: Hematocrit 41.0 % (37-53); Hemoglobin 14.10 g/dL (11.27-16.99); Mean Corpuscular HGB Conc 34.4 g/dL (30-55); Mean Corpuscular Hemoglobin 30.5 pg (27-33); Mean Corpuscular Volume 88.7 fl (82-101); Nucleated Red Blood Cells % 0 %; Platelet Count 228 10^3/cmm (157-399); Red Blood Count 4.62 10^6/uL (3.85-5.65); White Blood Count 10.09 10^3/uL (3.29-11.43)
[2025-02-09 00:32] LABS: Ammonia 35 umol/L (16-60)
[2025-02-09 00:42] LABS: Thyroid Stimulating Hormone 0.37 uIU/mL (0.27-4.20)
[2025-02-09 03:07] LABS: Vitamin B12 307 pg/mL (232-1245)
[2025-02-09 05:21] LABS: Anion Gap 15.9 (5-19); Blood Urea Nitrogen 10 mg/dL (8-23); Calcium 8.6 mg/dL (8.5-10.5); Carbon Dioxide 24 mmol/L (22-29); Chloride 107 mmol/L (98-107); Glucose 93 mg/dL (65-115); Osmolality Calculated 295 mOsm/kg (285-295); Potassium 3.9 mmol/L (3.5-5.1); Sodium 143 mmol/L (136-145)
[2025-02-09] MEDS: LOSARTAN 25 MG TABLET PO (05:47)
[2025-02-09 07:23] VITALS: BP 141/94; PULSE 102; RESP 18; TEMP 36.9; O2SAT 96
--- NOTE | 2025-02-09 07:41 | P.PN_ITS ---
Subjective 2 Subjective: Patient resting in bed on room air in no apparent distress. Family members noted to be at bedside during my evaluation. MRI scheduled for today. Labs and vital signs reviewed this a.m- WNL. See other imaging results below. Patient noted to be alert and oriented x 4 this a.m. with intermittent episodes of confusion. Vitals/I&O/Wt Last Vital Signs Temp 98.4 F 02/09/25 07:23 Pulse 102 H 02/09/25 07:23 Resp 18 02/09/25 07:23 BP 141/94 02/09/25 07:23 Pulse Ox 96 02/09/25 07:23 O2 Del Method Room Air 02/09/25 07:23 02/08/25 02/09/25 02/09/25 22:59 06:59 14:59 Intake Total 1000 / 1000 Output Total 300 / 300 Balance 1000 / 1000 -300 / -300 Weight last 48 hrs Weight 77.111 kg Weight 76.459 kg Weight 78.018 kg Physical Exam 2 Narrative: General: A&Ox4 with intermittent episodes of confusion, lying comfortably-no apparent distress. HEENT: Normocephalic, atraumatic, grossly unremarkable exam Cardio: NSR, normal S1-S2 without any murmurs, rubs, or gallops and JVD normal Respiratory: Clear on auscultation without any wheezes, stridor, rhonchi GI: Abdomen soft, nontender, nondistended, normoactive bowel sounds present Neuro: intact cranial nerves motor and sensory and cerebellar/coordination function without any focal neurological deficit Behavior: Appropriate and cooperative Extremities: Adequate palpable pulses.. Data 02/08/25 23:44 02/09/25 04:21 Other Labs: 02/09: Head MRI: Reviewed and demonstrated:No evidence of restricted diffusion to suggest acute ischemia. Mild small vessel changes. Minimal parenchymal volume loss. Temporal lobes and hippocampal formations are normal in appearance. No hemosiderin on the susceptibly weighted images. Tiny chronic lacunar infarct RIGHT cerebellum. No other acute findings. 02/08: Head CT: Reviewed and demonstrated: No acute intracranial abnormality. 02/08 CXR: Reviewed and demonstrated: No acute findings. 02/08 EKG: Reviewed and demonstrated: NSR, No ST elevation. QRS 122, QTc 439. HR 82 A&P Assessment and plan 1. Acute metabolic encephalopathy: 2. Altered mental status, unspecified altered mental status type: 3. Benign essential HTN: 4. Anxiety: Plan: Acute Metabolic Encephalopathy of unknown cause ? 02/09: Head MRI: reviewed and demonstrated: No other acute findings. ? 02/08: Head CT: Reviewed and demonstrated: No acute intracranial abnormality. ? 02/08 CXR: Reviewed and demonstrated: No acute findings. ? 02/08 EKG: NSR, No ST elevation. QRS 122, QTc 439. HR 82 ? Labs reviewed and resulted as follows: TSH: 0.37, ammonia 35, B12: 307- all WNL ? UA negative for UTI ? Patient positive for opioids, benzodiazepam's, marijuana on arrival ? Denies fall, seizure hx. ? Continue 0.45 NS at 100ml/hr ? Continue home medication aspirin p.o. 81 mg dly, ? Neurochecks Q6h ? Early mobilization- up to chair, walks, open window shades in am. ? Hold opioids ? Hold home medications: cyclobenzaprine, baclofen, pregabalin. ? Consultation for neurology services unavailable currently. ? PT/OT Benign Essential Hypertension - Continue home medications: Amlodipine 10 mg p.o. daily, losartan 25 mg p.o. daily Anxiety ? Hold home medication alprazolam CODE STATUS: Full code DVT prophylaxis: SCDs, Lovenox 40 mg subcu dly PDMP PDMP Reviewed: Not Reviewed Attestations 2 Medical Necessity Statement*: Most likely discharging today. Coding Level of Care Code Acute Code for Chg Fwd Diagnoses Acute metabolic encephalopathy G93.41 Altered mental status, unspecified altered mental status type R41.82 Altered mental status type: unspecified Benign essential HTN I10 Anxiety F41.9
--- NOTE | 2025-02-09 08:46 | PC.PHAR ---
states pt should be taking Amlodipine 5mg but it was last filled in October for 30ds. Newest strength is 10mg daily last fill 11/23/24 90ds. Pt placed new Fentanyl patch yesterday 02/08/25 for 72 hours. Pregabalin changed to 75mg bid 02/02/25
--- NOTE | 2025-02-09 09:10 | PC.CHAP ---
Pastoral Care Encounter/Spiritual Assessment Type of Contact [x] Declined promos executive producer visit [] Patient/Family/Request visit [] Outpatient visit [] Follow-up visit [] Physician referral [] Code/Alert [] Routine visit [] Staff referral [] Actively dying [] Patient sleeping [] Family support [] [] Out of room [] Palliative care [] [] Receiving care in room [] Pre-surgical visit [] Trauma [] Long length of stay [] ICU visit [] Other: Relational/Emotional Strength [] Patient feels connected with others/family/visitors/staff [] Distress [] Loneliness/isolation [] Abandonment Spirituality of Patient [] Person of Genet [] Attends Anabaptist of their Genet [] Believes in Prayer [] Reads Bible or Yazidi materials [] There are Spiritual issues to be addressed Soap Boiler Interventions [] Prayer [] Active listening [] Non-anxious presence [] Spiritual/emotional support [] Crisis/trauma care [] Spiritual counseling [] Bereavement support [] Provided bereavement packet [] Provided Bible/devotional materials [] Provided toy/stuffed animal, coloring book to patient or family member [] Provided Communion [] Anointing/[place] [] Salvation [] Completed spiritual assessment [] Other: Impact on Illness or Injury [] Angry [] Fearful [] Anxious [] Often cries [] Exhaustion [] Unable to work [] Unable to attend religious [] Unable to walk/stand [] Unable to read [] Unable to drive [] Unable to eat/drink [] Unable to sleep [] Unable to be with family [] Patient intubated [] Other: Summary Time spent with patient
--- NOTE | 2025-02-09 10:15 | MR_ITS ---
WS: [id number] MRI HEAD WITHOUT CONTRAST TECHNIQUE: Sagittal T1, T2 axial, T2 axial FLAIR, axial and coronal T1 images, axial susceptibility weighted imaging, axial diffusion weighted images, and coronal T2 images were obtained. CLINICAL INFORMATION: Acute encephalopathy COMPARISON: MRI 12/08/2024 FINDINGS: Some images degraded by motion. No evidence of restricted diffusion to suggest acute ischemia. Mild small vessel changes. Minimal parenchymal volume loss. Tiny chronic lacunar infarct RIGHT cerebellum. Normal vascular flow voids at the skull base. No extra-axial fluid collections. Paranasal sinuses and mastoid air cells are well aerated. Normal posterior nasopharynx. No hemosiderin on susceptibility-weighted images. Normal optic chiasm and pituitary infundibulum. Temporal lobes and hippocampal formations are normal in appearance. MR/MR head wo con* [id number] IMPRESSION: 1. No evidence of restricted diffusion to suggest acute ischemia. 2. Mild small vessel changes. Minimal parenchymal volume loss. 3. Temporal lobes and hippocampal formations are normal in appearance. 4. No hemosiderin on the susceptibly weighted images. 5. Tiny chronic lacunar infarct RIGHT cerebellum. 6. No other acute findings.
[2025-02-09 11:09] VITALS: BP 124/83; PULSE 87; RESP 17; TEMP 36.6; O2SAT 97
[2025-02-09 12:07] VITALS: PULSE 80; RESP 18; O2SAT 97
--- NOTE | 2025-02-09 13:53 | PM.DCS ---
Documented by User: Romina Sparks NP 02/09/25 14:04 Discharge Providers Date of Admission: 02/08/25 19:58 Date of Discharge: February 09, 2025 Attending Provider at Admission: Asim Rios MD Attending Provider at Discharge: Shiloh Calixto NP Primary Care Provider: Michael Trevino MD Diagnoses at Discharge Discharge Diagnosis 1. Acute metabolic encephalopathy: 2. Altered mental status, unspecified altered mental status type: 3. Benign essential HTN: 4. Anxiety: Reason for Visit Reason for Visit: AMS Brief History: Tam Ospina is a 64 year old male with a pmhx significant for cervical neck pain, COPD, HTN, and anxiety who presented with c/o altered mental status. Hospital Course Hospital Course Plan: Acute Metabolic Encephalopathy of unknown cause Likely induced by medication interactions ? 02/09: Head MRI: reviewed and demonstrated: No other acute findings. ? 02/08: Head CT: Reviewed and demonstrated: No acute intracranial abnormality. ? 02/08 CXR: Reviewed and demonstrated: No acute findings. ? 02/08 EKG: NSR, No ST elevation. QRS 122, QTc 439. HR 82 ? Labs reviewed and resulted as follows: TSH: 0.37, ammonia 35, B12: 307- all WNL ? UA negative for UTI ? Denies fall, seizure hx. Continue home medications of aspirin p.o. 81 mg dly, pregabalin 75mg PO BID, and the transdermal fentanyl patch 12 mcg/hr q72hr Hold home medications: cyclobenzaprine 10mg PO, baclofen 20mg , alprazolam 1mg PO Benign Essential Hypertension - Continue home medications: Amlodipine 10 mg p.o. dly, losartan 25 mg p.o. dly Patient discharge is in stable condition in care of family. As above confusion/altered mental status is most likely secondary to polypharmacy. Discharge instructions given to patient and his family at the bedside on holding certain medications that can increase or cause his confusion including cyclobenzaprine, baclofen, alprazolam. Patient is advised to follow-up with primary care provider in 1 to 2 days of discharge. All questions and concerns addressed with the patient and his family prior to discharge. Physical Exam Narrative: General: A&Ox4 with intermittent episodes of confusion, lying comfortably-no apparent distress. HEENT: Normocephalic, atraumatic, grossly unremarkable exam Cardio: NSR, normal S1-S2 without any murmurs, rubs, or gallops and JVD normal Respiratory: Clear on auscultation without any wheezes, stridor, rhonchi GI: Abdomen soft, nontender, nondistended, normoactive bowel sounds present Neuro: intact cranial nerves motor and sensory and cerebellar/coordination function without any focal neurological deficit Behavior: Appropriate and cooperative Extremities: Adequate palpable pulses.. Discharge Data Studies Completed and Pending Completed Studies During Hospitalization Category Date Time Status CT head wo con* [id number] Stat Cat Scan 02/08/25 18:23 Completed XR chest 1V portable [id number] Stat Exams 02/08/25 18:23 Completed MR head wo con* [id number] Routine MRI 02/09/25 10:15 Completed Radiology Impressions Chest X-Ray 02/08/25 18:23 IMPRESSION: No acute findings. Head CT 02/08/25 18:23 IMPRESSION: No acute intracranial abnormality. Head MRI 02/09/25 10:15 IMPRESSION: 1. No evidence of restricted diffusion to suggest acute ischemia. 2. Mild small vessel changes. Minimal parenchymal volume loss. 3. Temporal lobes and hippocampal formations are normal in appearance. 4. No hemosiderin on the susceptibly weighted images. 5. Tiny chronic lacunar infarct RIGHT cerebellum. 6. No other acute findings. Laboratory Results WBC 10.09 10^3/uL (3.29-11.43) 02/08/25 23:44 RBC 4.62 10^6/uL (3.85-5.65) 02/08/25 23:44 Hgb 14.10 g/dL (11.27-16.99) 02/08/25 23:44 Hct 41.0 % (37-53) 02/08/25 23:44 MCV 88.7 fl (82-101) 02/08/25 23:44 MCH 30.5 pg (27-33) 02/08/25 23:44 MCHC 34.4 g/dL (30-55) 02/08/25 23:44 RDW 13.4 % (12.1-15.1) 02/08/25 23:44 Plt Count 228 10^3/cmm (157-399) 02/08/25 23:44 MPV 10.0 fL (7.4-10.4) 02/08/25 23:44 Neut % (Auto) 77.0 % 02/08/25 23:44 Lymph % (Auto) 17.9 % 02/08/25 23:44 Cloud % (Auto) 4.5 % 02/08/25 23:44 Eos % (Auto) 0.1 % 02/08/25 23:44 Baso % (Auto) 0.4 % 02/08/25 23:44 Neut # (Auto) 7.77 10^3/uL (1.8-7.7) H 02/08/25 23:44 Lymph # (Auto) 1.8 10^3/uL (0.8-4.8) 02/08/25 23:44 Cloud # (Auto) 0.5 10^3/uL (0.2-0.9) 02/08/25 23:44 Eos # (Auto) 0.0 10^3/uL (0.0-0.8) 02/08/25 23:44 Baso # (Auto) 0.0 10^3/uL (0.0-0.1) 02/08/25 23:44 Nucleated RBC % (auto) 0 % 02/08/25 23:44 Nucleated RBCs # 0.0 /100WBC 02/08/25 23:44 PT 12.20 SECONDS (12.1-14.9) 02/08/25 18:30 INR 0.84 (0.8-1.2) 02/08/25 18:30 Specimen Type Arterial 02/08/25 18:29 Sample Site Brachial, left 02/08/25 18:29 ABG pH 7.39 (7.35-7.45) 02/08/25 18:29 ABG pCO2 44.5 mmHg (35-45) 02/08/25 18:29 ABG pO2 65.5 mmHg (80.0-100.0) L 02/08/25 18:29 ABG PO2/FiO2 Ratio 311 02/08/25 18:29 ABG HCO3 26.8 mmol/L (22-26) H 02/08/25 18:29 ABG Base Excess 1.3 mmol/L (-2.0-2.0) 02/08/25 18:29 Dwayne Test N/a 02/08/25 18:29 Hematocrit 47.7 % (42-52) 02/08/25 18:29 Hgb O2 Saturation 92.9 % (95-100) L 02/08/25 18:29 Carboxyhemoglobin 1.5 %THgb (0.4-20.1) 02/08/25 18: Methemoglobin 0.1 % (0.4-1.5) L 02/08/25 18: Total Hemoglobin 15.6 g/dL (14-18) 02/08/25 18:29 O2 Delivery Device Room air 02/08/25 18:29 FiO2 21.0 % 02/08/25 18:29 Credit [employer] Office Developer ID Amh 02/08/25 18:29 Sodium 143 mmol/L (136-145) 02/09/25 04:21 Potassium 3.9 mmol/L (3.5-5.1) 02/09/25 04:21 Chloride 107 mmol/L (98-107) 02/09/25 04:21 Carbon Dioxide 24 mmol/L (22-29) 02/09/25 04:21 Anion Gap 15.9 (5-19) 02/09/25 04:21 BUN 10 mg/dL (8-23) 02/09/25 04:21 Creatinine 0.5 mg/dL (0.7-1.2) L 02/09/25 04:21 GFR Calculation 167.9 mL/min (90-130) H 02/09/25 04:21 Glucose 93 mg/dL (65-115) 02/09/25 04:21 POC Glucose 172 mg/dL (70-110) H 02/09/25 04:34 Calculated Osmolality 295 mOsm/kg (285-295) 02/09/25 04:21 Calcium 8.6 mg/dL (8.5-10.5) 02/09/25 04:21 Magnesium 2.1 mg/dL (1.7-2.3) 02/08/25 18:30 Total Bilirubin 0.6 mg/dL (0.15-1.2) 02/08/25 18:30 AST 14 U/L (0-40) 02/08/25 18:30 ALT 11 U/L (0-41) 02/08/25 18:30 Alkaline Phosphatase 109 U/L (40-130) 02/08/25 18:30 Ammonia 35 umol/L (16-60) 02/08/25 23:44 Total Protein 7.5 g/dL (6.6-8.7) 02/08/25 18:30 Albumin 4.4 g/dL (3.5-5.2) 02/08/25 18:30 Globulin 3.1 g/dL (1.3-4.6) 02/08/25 18:30 Vitamin B12 307 pg/mL (232-1245) 02/08/25 23:44 TSH 0.37 uIU/mL (0.27-4.20) 02/08/25 23:44 Urine Color Yellow (Yellow) 02/08/25 19: Urine Appearance Clear (CLEAR) 02/08/25: Urine pH 6.5 (5-7) 02/08/25: Ur Specific [place] 1.017 (1.005-1.030) 02/08/25 19: Urine Protein Negative (Negative) 02/08/25: Urine Glucose (UA) Negative (Normal) 02/08/25: Urine Ketones Negative (Negative) 02/08/25 19: Urine Blood Negative (Negative) 02/08/25: Urine Nitrate Negative (Negative) 02/08/25: Urine Bilirubin Negative (Negative) 02/08/25: Urine Urobilinogen 0.2 mg/dL (Negative) 02/08/25 19: Ur Leukocyte Esterase Negative (Negative) 02/08/25 19: Urine RBC 0-2 /hpf (0-2) 02/08/25: Urine WBC 0-5 /hpf (0-5) 02/08/25 19: Ur Squamous Epith Cells 0-5 /hpf (0-5) 02/08/25 19: Amorphous Sediment Not Reportable 02/08/25 19: Urine Bacteria None seen /hpf (NONE) 02/08/25: Hyaline Casts 0.81 /lpf 02/08/25 19: Urine Opiates Screen Positive ng/mL (Negative) H 02/08/25 19: Ur Barbiturates Screen Negative ng/mL (Negative) 02/08/25 19: Ur Phencyclidine Scrn Negative ng/mL (Negative) 02/08/25 19: Ur Amphetamines Screen Negative ng/mL (Negative) 02/08/25 19:31 U Benzodiazepines Scrn Positive ng/mL (Negative) H 02/08/25 19:31 Urine Cocaine Screen Negative ng/mL (Negative) 02/08/25 19:31 U Marijuana (THC) Screen Positive ng/mL (Negative) H 02/08/25 19:31 Ethyl Alcohol < 10 mg/dL (0-10) 02/08/25 18:30 Vitals Last Vital Signs Temp 97.8 F 02/09/25 11:09 Pulse 80 02/09/25 12:07 Resp 18 02/09/25 12:07 BP 124/83 02/09/25 11:09 Pulse Ox 97 02/09/25 12:07 O2 Del Method Room Air 02/09/25 12:07 Discharge Plan Discharge Patient Disposition: Home Condition: Stable Prescriptions: Continued (DME) Trung [employer] Shoes with AFO bilaterally See Rx Instructions .Route .MEDSUPPLY Qty: 1 0RF Rx Instructions: As directed by [facility] fluticasone propion-salmeterol [Advair Diskus] 250-50 mcg/dose blister with device 1 inh inhalation BID fentanyl 12 mcg/hr patch 72 hour 1 patch topical Q72H amlodipine 10 mg tablet 10 mg PO DAILY Qty: 90 3RF losartan 25 mg tablet 25 mg PO DAILY 30 Days Qty: 90 3RF aspirin 81 mg tablet,delayed release (DR/EC) 81 mg PO DAILY Qty: 30 0RF pregabalin 75 mg capsule 75 mg PO BID Held cyclobenzaprine 10 mg tablet 10 mg PO BID Hold Instructions: Resume on 02/16/25. Please discuss this medication with your primary care provider before resuming baclofen 20 mg tablet See Rx Instructions .ROUTE .COMPLEX Qty: 180 2RF Hold Instructions: Resume on 02/16/25. Please discuss this medication with your primary care provider before resuming Dose Instruction: TAKE 1 TABLET BY MOUTH THREE TIMES DAILY Rx Instructions: TAKE 1 TABLET BY MOUTH THREE TIMES DAILY alprazolam 1 mg tablet 1 mg PO BID Qty: 60 2RF Hold Instructions: Resume on 02/16/25. Please discuss with your primary care provider before resuming this medication Discontinued amlodipine 5 mg tablet 5 mg PO DAILY Discharge Order = DC NOW: Discharge Order (Routine); Ordered 02/09/25 Ordered By: Shiloh Calixto Referrals: Michael Trevino MD [Primary Care Provider, [facility]] - 02/16/25 10:30 am Referral Note: Discharge Diet: Usual diet Discharge Activity: Resume usual activity Patient Instructions: Altered Mental Status (ED), Opioid Safety, Patient Portal & Michelle Instructions Coding Level of Care Code 08144 Diagnoses Acute metabolic encephalopathy G93.41 Altered mental status, unspecified altered mental status type R41.82 Altered mental status type: unspecified Benign essential HTN I10 Anxiety F41.9 Documented by User: Shiloh Calixto NP 02/09/25 14:06 Diagnoses at Discharge Discharge Diagnosis 1. Acute metabolic encephalopathy: 2. Altered mental status, unspecified altered mental status type: 3. Benign essential HTN: 4. Anxiety: Reason for Visit Reason for Visit: AMS Brief History: Tam Ospina is a 64 year old male with a pmhx significant for cervical neck pain, COPD, HTN, and anxiety who presented with c/o altered mental status. Spouse and sister are present and provide history as patient is unable to due so due to his clinical condition. I am told he was in his usual state of health, cleaning at home when his eyes glazed over suddenly and he began to have slurred speech. Family mention he has had an episode like this about 1 year ago and no explaination was given. The issue spontaneously resolved. This was about one year ago. There has been no recent change in medication. His only recent compaints were that of headache and chest pain. feels like the patient was warm at some point but no known fever. Had a single episode of diarrhea reportedly. says she gave a sedative to him last night to help him calm fown and shows me a pill which is identified as Primidone 50mg. There was a sick contact recently with grandson who may have had RSV of note. Hospital Course Hospital Course Plan: Acute Metabolic Encephalopathy of unknown cause Likely induced by medication interactions ? 02/09: Head MRI: reviewed and demonstrated: No other acute findings. ? 02/08: Head CT: Reviewed and demonstrated: No acute intracranial abnormality. ? 02/08 CXR: Reviewed and demonstrated: No acute findings. ? 02/08 EKG: NSR, No ST elevation. QRS 122, QTc 439. HR 82 ? Labs reviewed and resulted as follows: TSH: 0.37, ammonia 35, B12: 307- all WNL ? UA negative for UTI ? Denies fall, seizure hx. Continue home medications of aspirin p.o. 81 mg dly, pregabalin 75mg PO BID, and the transdermal fentanyl patch 12 mcg/hr q72hr Hold home medications: cyclobenzaprine 10mg PO, baclofen 20mg , alprazolam 1mg PO Benign Essential Hypertension - Continue home medications: Amlodipine 10 mg p.o. dly, losartan 25 mg p.o. dly Patient discharge is in stable condition in care of family. As above confusion/altered mental status is most likely secondary to polypharmacy. Discharge instructions given to patient and his family at the bedside on holding certain medications that can increase or cause his confusion including cyclobenzaprine, baclofen, alprazolam. Patient is advised to follow-up with primary care provider in 1 to 2 days of discharge. All questions and concerns addressed with the patient and his family prior to discharge. Discharge Plan Discharge Patient Disposition: Home Condition: Stable Prescriptions: Continued (DME) Trung [employer] Shoes with AFO bilaterally See Rx Instructions .Route .MEDSUPPLY Qty: 1 0RF Rx Instructions: As directed by [facility] fluticasone propion-salmeterol [Advair Diskus] 250-50 mcg/dose blister with device 1 inh inhalation BID fentanyl 12 mcg/hr patch 72 hour 1 patch topical Q72H amlodipine 10 mg tablet 10 mg PO DAILY Qty: 90 3RF losartan 25 mg tablet 25 mg PO DAILY 30 Days Qty: 90 3RF aspirin 81 mg tablet,delayed release (DR/EC) 81 mg PO DAILY Qty: 30 0RF pregabalin 75 mg capsule 75 mg PO BID Held cyclobenzaprine 10 mg tablet 10 mg PO BID Hold Instructions: Resume on 02/16/25. Please discuss this medication with your primary care provider before resuming baclofen 20 mg tablet See Rx Instructions .ROUTE .COMPLEX Qty: 180 2RF Hold Instructions: Resume on 02/16/25. Please discuss this medication with your primary care provider before resuming Dose Instruction: TAKE 1 TABLET BY MOUTH THREE TIMES DAILY Rx Instructions: TAKE 1 TABLET BY MOUTH THREE TIMES DAILY alprazolam 1 mg tablet 1 mg PO BID Qty: 60 2RF Hold Instructions: Resume on 02/16/25. Please discuss with your primary care provider before resuming this medication Discontinued amlodipine 5 mg tablet 5 mg PO DAILY Discharge Order = DC NOW: Discharge Order (Routine); Ordered 02/09/25 Ordered By: Shiloh Calixto Referrals: Michael Trevino MD [Primary Care Provider, [facility]] - 02/16/25 10:30 am Referral Note: Discharge Diet: Usual diet Discharge Activity: Resume usual activity Patient Instructions: Altered Mental Status (ED), Opioid Safety, Patient Portal & Michelle Instructions Discharge Attestations Time Spent in Discharge Care*: greater than 30 min Quality Metrics Clinical Quality Measures [ No reported AMI, CVA or VTE this stay] Coding Level of Care Code 39493 Diagnoses Acute metabolic encephalopathy G93.41 Altered mental status, unspecified altered mental status type R41.82 Altered mental status type: unspecified Benign essential HTN I10 Anxiety F41.9
[2025-02-09 14:49] VITALS: BP 124/83; PULSE 87; RESP 17; TEMP 36.6; O2SAT 97
--- NOTE | 2025-02-09 15:11 | PC.OT ---
Patient is discharged from Hospital today. OT evaluation not performed.
== END 2025-02-09 14:55 | disposition home or self-care (01) | DRG 72 ==
LOC: ER 20:05 → MEDSURG 20:50
PROVIDERS: Admitting Provider Family Medicine; Emergency Provider Emergency Medicine; PCP Family Medicine; Visit Provider Registered Nurse
DX: G93.41 Metabolic encephalopathy (principal); K21.9 Gastro-esophageal reflux disease without esophagitis; J44.9 Chronic obstructive pulmonary disease, unspecified; F41.9 Anxiety disorder, unspecified; N52.9 Male erectile dysfunction, unspecified; G47.00 Insomnia, unspecified; I10 Essential (primary) hypertension; F17.200 Nicotine dependence, unspecified, uncomplicated; Z79.899 Other long term (current) drug therapy; Z79.82 Long term (current) use of aspirin; Z88.5 Allergy status to narcotic agent
CPT/HCPCS: 36415; 36416; 36600; 70450; 70551; 71045; 80048; 80053; 80306; 80307; 81001; 82140; 82607; 82805; 82962; 83735; 84443; 85025; 85610; 93005; 94640; 96361; 96372; 96374; 97161; 99285; J1650; J2312; J7030; J7613; J9999